=== PATIENT | male | born 1970 | race Caucasian/White ===

== ENCOUNTER 2019-03-05 06:25 | Inpatient (IN) ==
--- NOTE | 2019-02-11 13:24 | PAT Medication Instructions ---
Medication Instructions Date of Service February 11, 2019 Home Medications allopurinol 300 mg tablet 150 mg PO QPM armodafinil 200 mg tablet 200 mg PO QAM aspirin 81 mg tablet,delayed 81 mg PO QPM carvedilol 12.5 mg tablet 12.5 mg PO BID metformin 500 mg tablet 500 mg PO BID multivitamin tablet 1 tab PO QAM nifedipine ER 60 mg 60 mg PO QAM potassium chloride ER 10 mEq 40 meq PO BID ranitidine 150 mg tablet 150 mg PO BID torsemide 20 mg tablet 20 mg PO BID ASK your prescriber and surgeon aspirin 81 mg tablet,delayed 81 mg PO QPM DO NOT take the morning of surgery armodafinil 200 mg tablet 200 mg PO QAM metformin 500 mg tablet 500 mg PO BID multivitamin tablet 1 tab PO QAM potassium chloride ER 10 mEq 40 meq PO BID ranitidine 150 mg tablet 150 mg PO BID torsemide 20 mg tablet 20 mg PO BID Take morning of surgery With a small sip of water, OTHERWISE NOTHING TO EAT OR DRINK AFTER MIDNIGHT: carvedilol 12.5 mg tablet 12.5 mg PO BID nifedipine ER 60 mg 60 mg PO QAM Take evening before surgery allopurinol 300 mg tablet 150 mg PO QPM carvedilol 12.5 mg tablet 12.5 mg PO BID metformin 500 mg tablet 500 mg PO BID potassium chloride ER 10 mEq 40 meq PO BID ranitidine 150 mg tablet 150 mg PO BID torsemide 20 mg tablet 20 mg PO BID Other Notes If you have any questions please call us at [phone] or [phone] or [phone] or [phone]
--- NOTE | 2019-02-12 11:43 | Anesthesiology Consultation ---
Date of Service February 12, 2019 Assessment & Plan (1) Encounter for pre-operative examination: - Check BSG AM DOS - Cardio: 12/20/18: "I see no cardiac contraindication to proceeding on with the planned prostatectomy." - Per patient, okay to continue ASA perioperatively per surgeon* Chart Review Chart Review: Acceptable Risk for Surgery and Patient seen in Pre Admission Testing Teaching & Discussion Pre-Anesthesia Teaching/Discussion Notes: Instructed NPO after midnight before surgery,except medications with 15 cc of water. Medication instructions provided according to the PAT guidelines. History Surgery Operation Date: 03/05/19 07:30 Proposed Procedures p Robotic Assisted Laparoscopic Radical Retropubic Prostatectomy, Possible Open, Possible Pelvic Lymph Node Dissection, Possible Suprapubic Tube Placement - Damon Donovan MD Height/Weight Height: 6 ft 4 in Weight: 181.4 kg Allergies Allergy/AdvReac Type Severity Reaction Status Date / Time No Known Allergies Allergy Verified 02/11/19 10:08 Medications Home Medications Medication Instructions Recorded Confirmed Last Taken allopurinol 300 mg tablet 150 mg PO QPM tab 01/02/19 02/11/19 Unknown armodafinil 200 mg tablet 200 mg PO QAM 01/02/19 02/11/19 Unknown aspirin 81 mg tablet,delayed 81 mg PO QPM 01/02/19 02/11/19 Unknown release carvedilol 12.5 mg tablet 12.5 mg PO BID 01/02/19 02/11/19 Unknown metformin 500 mg tablet 500 mg PO BID 01/02/19 02/11/19 Unknown multivitamin tablet 1 tab PO QAM 01/02/19 02/11/19 Unknown nifedipine ER 60 mg 60 mg PO QAM 01/02/19 02/11/19 Unknown tablet,extended release 24 hr potassium chloride ER 10 mEq 40 meq PO BID tab 01/02/19 02/11/19 Unknown tablet,extended release ranitidine 150 mg tablet 150 mg PO BID tab 01/02/19 02/11/19 Unknown torsemide 20 mg tablet 20 mg PO BID tab 01/02/19 02/11/19 Unknown Past Medical History Medical History Diabetes NIDDM Drowsiness DAYTIME DROWSINESS- ON NUVIGIL High cholesterol Hypertension Morbid obesity Myocardial infarct 2001 Pacemaker 2000, 2008 (REVISION)= [facility]; LAST PACER CHECK 12/20/18* Prostate CA DX 11/2018 Sleep apnea CPAP Past Family History Family History Grandfather (Maternal) , Passed in 70's of suicide Colon cancer, Onset Age: 70 Mother No problems noted. Father Diabetes Brother No problems noted. Brother No problems noted. Sister No problems noted. Daughter No problems noted. Daughter No problems noted. Daughter No problems noted. Daughter No problems noted. Past Surgical History Surgical History History of cardiac cath X2; MOST RECENT 2008= NO STENTS History of prostate biopsy 11/2018 Status post biventricular cardiac pacemaker insertion 2000, 2013 (REVISION) Past Anesthesia History No Hx of Anesthesia Complications and No Family Hx of Anesthesia Complications History of PONV No Motion Sickness Screening History of Motion Sickness: No Social History Smoking Status: Former smoker tobacco type: cigarettes Smoking cigarettes per day: QUIT 15 YEARS, HX < 3 PPD X 20+ YEARS Do You Dip or Chew Tobacco: No Hx Alcohol Use: Yes Alcohol type: other alcohol intake frequency: a few times a week Hx Substance Use: No substance use type: does not use Exercise / Class Metabolic Activity III < 4 Walking/Shop/Light housework Review of Systems Patient denies chest pain, shortness of breath, cough, wheezing, palpitations. Physical Exam Vital Signs VITALS BP 146/84 P 60 TEMP 98.2 SP02 95%RA RESP 20 PHYSICAL Full neck and c-spine range of motion. Full TMJ range of motion. TMD 4 finger breaths Mallampati Score 3 Dentition: missing sides/molars Lungs: clear throughout to auscultation Cardiac: regular rate and rhythm, no murmurs noted Spine: normal Carotid arteries: negative bruit Extremities: no edema Large trimble-- patient advised to trim Large tongue Testing Electrocardiogram Date: 12/20/18 Atrial paced rhythm at 60bpm. Chest X-Ray Date: 02/12/19 Findings: + NAD Mild cardiomegaly. No acute process. Echocardiogram Date: 12/20/18 EF 55%. No RWMA. Mild LVH. Minimal sclerotic changes to atrial/mitral valve. Stress Test Date: 07/09/17 Type: nuclear (LEXISCAN) Normal myocardial perfusion stress images with no evidence for pharmacologically induced ischemia. Post stress 52%. Other Testing Pacer check: 12/20/18: [facility]. Mode DDDR. Mode switch < 1%. AP 53%. ACCESS CONTROL SPECIALIST <1%. Laboratory Results 02/12/19 11:51 02/12/19 11:51 Blood Type O Positive 02/12/19 11:51 Antibody Screen NEGATIVE 02/12/19 11:51 Urine Color Yellow 02/12/19 Unknown Urine Appearance Clear (Clear) 02/12/19 Unknown Urine pH 5.5 (4.5-7.5) 02/12/19 Unknown Ur Specific [place] 1.012 (1.000-1.030) 02/12/19 Unknown Urine Protein Negative (Negative) 02/12/19 Unknown Urine Glucose (UA) Negative (Negative) 02/12/19 Unknown Urine Ketones Negative (Negative) 02/12/19 Unknown Urine Nitrite Negative (Negative) 02/12/19 Unknown Ur Leukocyte Esterase Negative (Negative) 02/12/19 Unknown
--- NOTE | 2019-02-12 12:27 | XRay Report ---
XR chest Pre-admission PA/Lat CLINICAL HISTORY: pat preoperative evaluation COMPARISON STUDY: No previous studies for comparison. FINDINGS: Evidence for bipolar cardiac pacemaker. Mild cardiomegaly. Lungs are clear. IMPRESSION: Mild cardiomegaly. No acute process. The above report was generated using voice recognition software. It may contain grammatical, syntax or spelling errors. Electronically signed by: Shahriar Mishra M.D. 02/12/2019 12:26 PM
[2019-02-12 12:29] LABS: Appearance Urine Clear (Clear); Bilirubin Urine Negative (Negative); Blood Urine Negative (Negative); Color Urine Yellow; Glucose Urine UA Negative (Negative); Ketones Urine Negative (Negative); Leukocyte Esterase Urine Negative (Negative); Nitrite Urine Negative (Negative); Protein Urine Negative (Negative); Specific Gravity Urine 1.012 (1.000-1.030); Urobilinogen Urine Negative (Negative); pH Urine 5.5 (4.5-7.5)
[2019-02-12 12:29] LABS: Basophils # (auto) 0.01 K/uL (0-0.2); Basophils % (auto) 0.1 %; Eosinophils # (auto) 0.13 K/uL (0-0.5); Eosinophils % (auto) 1.7 %; Hemoglobin 14.9 g/dL (14.0-18.0); Immature Granulocytes # (auto) 0.01 K/uL (0.00-0.02); Immature Granulocytes % (auto) 0.1 %; Lymphocytes # (auto) 2.61 K/uL (1.2-3.4); Lymphocytes % (auto) 34.7 %; Mean Corpuscular Hgb Conc 33.9 g/dL (32-36); Mean Corpuscular Volume 90.5 fL (80-100); Mean Platelet Volume 11.1 fL (7.4-10.4); Monocytes # (auto) 0.47 K/uL (0.11-0.59); Monocytes % (auto) 6.2 %; Neutrophils % (auto) 57.2 %; Platelet Count 215 K/uL (130-400); RDW Coefficient of Variation 13.6 % (11.5-14.5); RDW Standard Deviation 44.6 fL (36.4-46.3); Red Blood Count 4.86 M/uL (4.7-6.1); White Blood Count 7.53 K/uL (4.8-10.8)
[2019-02-12 12:39] LABS: BUN Creatinine Ratio 13.6 (10-20); Calcium 8.9 mg/dl (8.5-10.1); Creatinine Clr Calc Pharmacy 196.9 ml/min; Est GFR (African American) 121.6; Est GFR (Non-African American) 104.9; Potassium 3.8 mmol/L (3.5-5.1)
[~2019-03-05 06:25] MED LIST: CEFAZOLIN 3000MG 65 ML IV SCH; HEPARIN SOD 5,000 UNIT/0.5 ML VIAL SC SCH; HEPARIN SQ 5000 UNIT HEART ALERT CARP SQ SCH; LR 15ML/HR IV SCH
--- OUTSIDE RECORDS SUMMARY | 2019-03-05 06:28 | External Medical Summary | Continuity of Care Document ---
:1970 Author Name Anthony Mcmahan Address Unavailable Unavailable , Care Team Providers Name Role Phone Zion Mcmahan Unavailable [email or web address] Unavailable Unavailable Unavailable Unavailable Unavailable Problems Neoplasm of prostate, malignant (185) (C61) Elevated PSA (790.93) (R97.20) Pacemaker (V45.01) (Z95.0) Heart trouble (429.9) (I51.9) High cholesterol (272.0) (E78.00) High blood pressure (401.9) (I10) Diabetes (250.00) (E11.9) Renal mass (593.9) (N28.89) Allergies and Adverse Reactions No Known Drug Allergies (Allergy) Medications Coreg 12.5 MG Oral Tablet Refills: 0 Potassium TABS Refills: 0 metFORMIN HCl - 500 MG Oral Tablet Refills: 0 Nuvigil 150 MG Oral Tablet Refills: 0 Aspirin 81 MG TABS Refills: 0 Zantac 150 MG TABS Refills: 0 Multiple Vitamin TABS Refills: 0 Procedures BUN/Creatinine Ratio w BUN+Creat Date: 03-Jan-2019 BUN/Creatinine Ratio w BUN+Creat Date: 03-Jan-2019 History of pacemaker insertion Status: C ompleted Immunizations Immunizations not documented Family History Father Family history of diabetes mellitus (V18.0) (Z83.3) Status: Active Mother Family history of hypertension (V17.49) (Z82.49) Status: Act noemi Grandfather Family history of malignant neoplasm of prostate (V16. 42) (Z80.42) Status: Active Social History - Smoking Status Former smoker Plan of Treatment Planned Encounters Appointment; Derick Donovan M.D. Start: 21-Mar-2019 9:45 Request Planned Observations Planned Goals not documented Results X-Ray Chest Preadm Testing Laboratory: [facility] [address] [facility] [place] 12-Feb-2019 12:24 X-Ray Chest Preadm Testing (CXRPRE) [facility], [place] [phone] XRay Report Patient: LORI GARLAND Admit Date: MR#: [id number] Address1[address] Acct ID:[id number] Address2: Date: 1970 [facility] Zip: [place] [address] Age: 48 Location: [facility] Sex: M Room/Bed: Att Phy: Derick Donovan MD Diagnos is: Prostate Cancer Alea Phy: Laz Owen Service Date: 02/12/19 Fam Phy: Interpreting Phy: Shahriar Mishra MD Admit Phy: Ordering Phy: Derick Donovan MD cc: XR chest Pre-admission PA/Lat CLINICAL HISTORY: pat preoperative evaluation COMPARISON STUDY: No previous studies for comparison. FINDINGS: Evidence for bipolar cardiac pacemaker. Mild cardiomegaly. Lungs are clear. IMPRESSION: Mild cardiomegaly. No acute process. The above report was generated using voice recognition software. It may contain grammatical, syntax or spelling errors. Electronically signed by: Shahriar Mishra M.D. 02/12/2019 12:26 PM Dictated: 02/12/19 1224 Transcribed: 02/12/19 1224 CBC With DIFF Laboratory: [facility] Laboratory [address] [place] [address] tel: 12-Feb-2019 11:51 WBC 7.53 K/uL Range: 4.8-10.8 K/u L RBC 4.86 {M/uL} Range: 4.7-6.1 M/uL HEMOGLOBIN 14.9 g/dL Range: 14.0-18.0 g /dL HEMATOCRIT 44.0 % Range: 42-52 % MCV 90.5 fL Range: 80-100 fL MCH 30.7 pg Range: 25-34 pg MEAN CORPUSCULAR HGB CONC Range: 32-36 g/dL 33.9 g/dL RED CELL DISTRIBUTION WIDTH Range: 36.4 -46.3 fL SD 44.6 fL RED CELL DISTRIBUTION WIDTH Range: 11.5 -14.5 % CV 13.6 % PLATELET COUNT 215 K/uL Range: 130-400 K/uL MEAN PLATELET VOLUME 11.1 fL Range: 7.4 -10.4 fL (above high threshold) NEUT % 57.2 % Range: % LYMPH % 34.7 % Range: % MONO % 6.2 % Range: % EOS % 1.7 % Range: % BASO % 0.1 % Range: % IG% 0.1 % Range: % Comments: IG paramet er reflects the combination of Metas, Myelos andPromyelocytes. Neutrophils (Auto) 4.30 K/uL Range: 1. 4-6.5 K/uL LYMPH ABS # 2.61 K/uL Range: 1.2-3.4 K/ uL MONO ABS # 0.47 K/uL Range: 0.11-0.59 K /uL EOS ABS # 0.13 K/uL Range: 0-0.5 K/uL BASO ABS # 0.01 K/uL Range: 0-0.2 K/uL IG# 0.01 K/uL Range: 0.00-0.02 K/ uL Urine rflx Microscopic Laboratory: [facility] Laboratory Comments : [address] [facility] [address] tel: 12-Feb-2019 0:00 Urine Color Yellow Urine Appearance Clear Range: Clear Urine Specific [place] 1.012 Range: 1.0 00-1.030 Urine Ph 5.5 Range: 4.5-7.5 Urine Protein(Dipstick) Range: Negative Negative Urine Glucose(Dipstick) Range: Negative Negative Urine Ketones Negative Range: Negative Urine Bilirubin Negative Range: Negativ e URINE BLOOD HGB Negative Range: Negativ e Urobilinogen Negative Range: Negative Nitrite Urine Negative Range: Negative Urine Leukocyte Esterase Range: Negativ e Negative Basic Metabolic Panel Laboratory: [facility] Laboratory [address] [facility] [address] tel: 12-Feb-2019 11:51 SODIUM 143 mmol/L Range: 136-145 mmol /L POTASSIUM 3.8 mmol/L Range: 3.5-5.1 mmo l/L CHLORIDE 109 mmol/L (above Range: 98-10 7 mmol/L high threshold) CARBON DIOXIDE 30 mmol/L Range: 21-32 m mol/L ANION GAP 4.0 Range: 3-11 BLOOD UREA NITROGEN 11 mg/dl Range: 7-1 8 mg/dl CREATININE 0.80 mg/dl Range: 0.6-1.4 mg /dl Estimated Creatinine Range: ml/min Clearance 196.9 ml/min Comments: Est. Cr eatinine Clearance (Mod Cockcroft- Gault) for pharmacydosing purposes. Estimated GFR ( Comments: Units: ml/min per Iranian) 121.6 1.73 meters squaredT he estimated GFR (CKD-E PI equation) has not be en validatedfor inpatie nt settings and may not be an accurate reflectiono f renal function in critical ly ill patients or those wi thrapidly changing renal funct ion (e.g. PHYLICIA). Estimated GFR (Non- Comments: Uni ts: ml/min per Iranian) 104.9 1.73 meters squaredT he estimated GFR (CKD-E PI equation) has not be en validatedfor inpatie nt settings and may not be an accurate reflectiono f renal function in critical ly ill patients or those wi thrapidly changing renal funct ion (e.g. PHYLICIA). BUN/CREATININE RATIO 13.6 Range: 10-20 GLUCOSE 96 mg/dl Range: 70-99 mg/dl CALCIUM 8.9 mg/dl Range: 8.5-10.1 mg/ dl Urine Culture 12-Feb-2019 0:00 URINE CULTURE CATH ORDERED PROCEDURE : Urine Culture; Speciment : Urine,Clean Catch Urine Culture : No growth - less than 1,000 colonies/mL. Vital Signs 12-Feb-2019 13:12 Systolic 158 mm[Hg] Diastolic 98 mm[Hg] Heart Rate 67 /min Encounters Appointment; Derick Donovan M.D. 12-Feb-2019 13:10 Encounter Diagnosis: Problem not documented Appointment; Derick Donovan M.D. 21-Jan-2019 8:25 Encounter Diagnosis: Problem not documented Appointment; Derick Donovan M.D. 06-Dec-2018 11:20 Encounter Diagnosis: Problem not documented Appointment; Derick Donovan M.D. 23-Nov-2018 13:15 Encounter Diagnosis: Problem not documented Appointment; Urology, US probe only 23-Nov-2018 13:15 Encounter Diagnosis: Problem not documented Appointment; Urology, Room 8 23-Nov-2018 13:00 Encounter Diagnosis: Problem not documented Appointment; Derick Donovan M.D. 29-Oct-2018 14:00 Encounter Diagnosis: Problem not documented Appointment; Derick Donovan M.D. 21-Mar-2019 9:45 Encounter Diagnosis: Problem not documented
[2019-03-05] MEDS ORDERED: BUPIVACAINE 0.5 % 5 MG/1 ML MPF 30ML VIAL ONE (06:59)
--- NOTE | 2019-03-05 06:59 | History & Physical Bridge Note ---
Date of Service March 05, 2019 History & Physical Bridge Note I have examined the patient, reviewed the History & Physical and in the interval since the performance of the History & Physical I have noted the following changes of clinical significance: no changes noted
[2019-03-05] MEDS ORDERED: fentaNYL citrate 100 MCG/2 ML VIAL ONE ×2 (07:06→08:22)
[2019-03-05] MEDS ORDERED: MIDAZOLAM HCL 1 MG/ML 2ML VIAL ONE (07:06)
[2019-03-05] MEDS ORDERED: ATROPINE SULFATE 0.1 MG/ML 10ML SYR IV PRN (07:20)
[2019-03-05] MEDS ORDERED: fentaNYL citrate 100 MCG/2 ML VIAL IV PRN (07:20)
[2019-03-05] MEDS ORDERED: PHENYLEPHRINE 100MCG/ML 5ML SYR IV PRN (07:20)
[2019-03-05] MEDS ORDERED: HYDROmorphone INJ 1 MG/ML SYRINGE IV PRN (07:20)
[2019-03-05] MEDS ORDERED: ONDANSETRON INJ 2 MG/ML 2 ML VIAL IV PRN ×2 (07:20→14:09)
[2019-03-05] MEDS ORDERED: ePHEDrine sulfate 50 MG/ML AMP IV PRN (07:20)
[2019-03-05] MEDS ORDERED: PROMETHAZINE HCL 12.5 MG in SODIUM CHLORIDE 0.9% 50 ML IV PRN (07:20)
[2019-03-05] MEDS ORDERED: DEXAMETHASONE SOD INJ 4 MG/ML VIAL ONE (07:24)
[2019-03-05] MEDS ORDERED: PHENYLEPHRINE 100MCG/ML 5ML SYR ONE (07:24)
[2019-03-05] MEDS ORDERED: ePHEDrine sulfate 50 MG/ML SYR ONE (07:24)
[2019-03-05] MEDS ORDERED: NEOSTIGMINE METHYLSULFATE 5 MG/5 ML SYR ONE (07:24)
[2019-03-05] MEDS ORDERED: PROPOFOL IV EMULSION 10 MG/ML 20 ML VIAL IV ONE ×2 (07:24→08:31)
[2019-03-05] MEDS ORDERED: ROCURONIUM BROMIDE 10 MG/ML 5 ML VIAL ONE (07:24)
[2019-03-05] MEDS ORDERED: LIDOCAINE HCL 2% 2 ML VIAL/AMP(20MG/ML) INFIL ONE (07:24)
[2019-03-05] MEDS ORDERED: LARYING-O-JET KIT (LTA) ONE (07:24)
[2019-03-05] MEDS ORDERED: GLYCOPYRROLATE 0.2 MG/ML VIAL ONE (07:24)
[2019-03-05] MEDS ORDERED: ONDANSETRON INJ 2 MG/ML 2 ML VIAL ONE (07:24)
[2019-03-05] MEDS ORDERED: BELLADONNA/OPIUM SUPP 60 MG SUPP PR ONE (08:21)
[2019-03-05] MEDS ORDERED: HYDROmorphone INJ 2 MG/ML SYR/VIAL ONE (08:22)
--- NOTE | 2019-03-05 12:47 | Operative Report ---
Post Operative Report Pre & Post Diagnosis Operation Date: 03/05/19 07:55 Pre-Op Diagnosis: Prostate Cancer Post-Op Diagnosis: Prostate Cancer Procedure Operation Date: 03/05/19 07:55 Actual Procedures p Robotic Assisted Laparoscopic Radical Retropubic Prostatectomy, Pelvic Lymph Node Dissection(Not Applicable) - Damon Donovan MD Surgeon Derick Donovan MD Guillotine Operator Herminia Verdugo Estimated Blood Loss 150 Findings Consistent with Post-Op Diagnosis Specimens 1. Periprostatic fat 2. R pelvic lymph nodes 3. L pelvic lymph nodes 4. Prostate and Seminal vesicles Description of Procedure The patient was identified in the preoperative holding area, appropriate informed consents were reviewed and completed, and he was transported to the operating suite. Subcutaneous heparin was administered in the pre-operative holding area. Upon arrival in the operating suite, he received appropriate antibiotics and general anesthesia. He was positioned in dorsal lithotomy, a B&O suppository was inserted after digital rectal exam, and he was prepped and draped in standard fashion. A Navarro catheter was inserted in the sterile field. A Veress needle was passed per umbilicus but I did not feel it could adequately reach the peritoneum - instead, I entered the abdomen with a 12mm visiport in the supraumbilical region. He was placed in steep Trendelenburg position. Inspection of the abdomen was carried out, and there was no evidence of traumatic entry or injury secondary to the Veress needle. After confirming a clear anterior abdominal wall, ports were subsequently placed in standard robotic prostatectomy fashion without incident. Of note, give his body habitus, I elected to use extralong ports in all locations. To begin the robotic portion of the case, the left lateral aspect of the sigmoid was mobilized off of the left pelvic side wall to allow the pouch of Butch to be appropriately visualized. While I could visualize the pouch, logistics of moving and reaching around his pelvis were challenging and I elected to avoid a posterior dissection. The medial umbilical ligaments were then controlled with bipolar electrocautery just inferior to the umbilicus. Following cauterization, they were divided utilizing monopolar cautery. A peritoneal incision was carried from this location to the medial aspect of the internal inguinal rings bilaterally with care to avoid opening through the ring. This incision was concluded when the vas deferens was reached. Dissection of the bladder and prostate off of the posterior aspect of the pubic arch was completed allowing full visualization of the prostate. The fat overlying the prostate was removed en bloc and passed off the table as a specimen labeled "periprostatic fat". The endopelvic fascia was cleared during this portion of the procedure, and subsequently opened - first on the right and then the left. The incision through the endopelvic fascia began near the prostate-bladder junction and was carried to the apex with extreme care to preserve all lateral levator musculature as well as the periurethral musculature and sphincter complex. The puboprostatic ligaments were thinned slightly bilaterally before placing a 0-Vicryl figure of 8 stitch around the DVC. The lymph node dissection was then conducted. External iliac vessels were identified on the pelvic side wall. The packet of fat and lymphatic tissue that resides just under the iliac vein was elevated and off of the vein with a split and roll technique. The packet was dissected laterally to the circumflex vein and distally to the obturator nerve which was preserved. The proximal aspect of the packet was carried towards the bifurcation of the iliac vessels. A combination of monopolar and bipolar cautery were used to assist with control. Clips were placed at the proximal and distal aspects of the packet prior to transection. After completing the dissection on both sides, the packets were collected and passed off of the table as specimens labeled "pelvic lymph nodes". My attention then returned to the prostate, with identification of the bladder neck aided by gentle traction on the Navarro catheter and lateral to medial pressure at the presumed level of the bladder neck with the robotic instruments. An anterior cystotomy was made, the Navarro balloon deflated and the catheter guided through the incision to allow anterior retraction. I attempted to preserve maximal bladder neck musculature as I circumferentially dissected around the bladder neck. After incision through the posterior aspect of the mucosa, the dissection was carried through detrusor muscle until the bilateral ampullae of the vasa were identified. Each vas was dissected for a length of 4cm before being transected. I then dissected the SV's bilaterally. I attempted to perform a posterior dissection - but mobility, reach, and angle all made this dissection extremely challenging. An incision in the lateral prostatic fascia was then made bilaterally to facilitate control of the vascular pedicles. The pedicles were each controlled with a series of Weck clips. The neurovascular bundles were identified with a conservative approach on the right, and slight more aggressive dissection on the left. As I progressed through the pedicles, I was able to expand and complete my posterior dissection. The apical attachments of the prostate were remaining at that stage. The DVC was divided with bipolar electrocautery. Ginger-prostatic tissue incised with sharp dissection and monopolar cautery. Maximal urethral length was preserved before dividing the urethra sharply. I had a small amount of oozing from the left neurovascular bundle near the apex of the prostate. I oversewed the venous bleeding with a 3-0 vicryl in figure of 8 fashion. The prostate was entirely freed at that point, and collected in an EndoCatch bag before being moved out of the field of vision. Hemostasis was confirmed and anastomosis of the bladder and urethra was completed utilizing a double armed V- Lock stitch. A new Navarro catheter was inserted and the anastomosis tested with irrigation. There was no evidence of leak. FloSeal coagulant was placed around the anastomosis. The robot was undocked, the specimen extracted through expansion of the ginger- umbilical camera port. The fascia was closed with a running 0-PDS stitch. The right event sales assistant port was closed in two layers - with a figure of 8 0-Vicryl to reapproximate the fascia followed by 4-0 Monocryl to close the skin. Monocryl was used to close all other skin incisions. All wounds were dressed with Dermabond. The case was concluded and the patient taken to the PACU in stable condition. Herminia Verdugo assisted throughout the case from incision to closure. I attest to the content of the Intraoperative Record and any orders documented therein. Any exceptions are noted below.
[2019-03-05 12:54] LABS: Basophils # (auto) 0.01 K/uL (0-0.2); Basophils % (auto) 0.1 %; Eosinophils # (auto) 0.02 K/uL (0-0.5); Eosinophils % (auto) 0.2 %; Hematocrit (blood only) 41.4 % (42-52); Hemoglobin 14.2 g/dL (14.0-18.0); Immature Granulocytes # (auto) 0.02 K/uL (0.00-0.02); Immature Granulocytes % (auto) 0.2 %; Lymphocytes # (auto) 1.79 K/uL (1.2-3.4); Lymphocytes % (auto) 18.5 %; Mean Corpuscular Volume 90.4 fL (80-100); Mean Platelet Volume 10.9 fL (7.4-10.4); Monocytes # (auto) 0.18 K/uL (0.11-0.59); Monocytes % (auto) 1.9 %; Neutrophils # (auto) 7.63 K/uL (1.4-6.5); Neutrophils % (auto) 79.1 %; Platelet Count 221 K/uL (130-400); RDW Coefficient of Variation 13.5 % (11.5-14.5); RDW Standard Deviation 44.7 fL (36.4-46.3); Red Blood Count 4.58 M/uL (4.7-6.1); White Blood Count 9.65 K/uL (4.8-10.8)
[2019-03-05 12:59] LABS: Mean Corpuscular Hgb Conc 34.3 g/dL (32-36)
[2019-03-05 13:10] LABS: BUN Creatinine Ratio 12.5 (10-20); Calcium 8.3 mg/dl (8.5-10.1); Creatinine Clr Calc Pharmacy 104.5 ml/min; Est GFR (Non-African American) 54.3; Potassium 3.6 mmol/L (3.5-5.1)
--- NOTE | 2019-03-05 13:24 | Anesthesiology Progress Note ---
Date of Service March 05, 2019 Anesthesia Post Procedure Vital Signs Vital Signs: Temp Pulse Pulse Resp BP Pulse Ox 03/05/19 13:05 36.4 C L 60 15 135/75 95 03/05/19 12:55 60 15 129/70 98 03/05/19 12:45 60 14 124/71 97 03/05/19 12:37 36.0 C L 60 13 134/72 96 03/05/19 07:00 36.5 C 63 20 171/89 H 96 Transfer of Care Handoff Completed per policy Notes Mental Status: alert / awake / arousable Patient Amnestic to Procedure: Yes Nausea / Vomiting: adequately controlled Pain: adequately controlled Airway Patency, RR, SpO2: stable & adequate BP & HR: stable & adequate Hydration State: stable & adequate Anesthetic Complications: no major complications apparent Notes: Awake, doing well. Requiring 2L O2 via NC to maintain O2 sat. VSS
[2019-03-05] MEDS ORDERED: MoRPHine SULFATE 4 MG/ML 1 ML CARP\\VIAL IV PRN (14:09)
[2019-03-05] MEDS ORDERED: OXYCODONE HCL IR 5 MG TAB (IMMEDIATE RELEASE) PO PRN (14:09)
[2019-03-05] MEDS ORDERED: PHARMACY GLYCEMIC MGMT CONSULT PRN (14:31)
[2019-03-05] MEDS ORDERED: INSULIN GLARGINE SOLOSTAR 100 UNITS/ML 3 ML PEN SC ONE ×2 (14:45→21:00)
--- NOTE | 2019-03-05 15:36 | Pharmacy Report ---
Glycemic Control Consultation - Date of Service March 05, 2019 - Scope Scope: Glycemic Pharmacist consulted for glycemic control and to write orders per [facility] inpatient glycemic control protocol - Objective Weight: 177.9 kg Accuchecks BSG (last 24hrs): 03/05/19 03/05/19 03/05/19 06:56 12:40 12:45 Glucose 143 H POC Glucose 125 H 125 H 03/05/19 15:16 Glucose POC Glucose 147 H Laboratory Data (last 24hrs): 03/05/19 12:45 Potassium 3.6 Carbon Dioxide 34 H Anion Gap 3.0 Creatinine 1.49 H Est Cr Clr Drug Dosing 104.5 - Recent Pertinent Medications Outpatient Anti-diabetic Regimen: * Metformin 500 mg po BID * A1c on order for tomorrow AM Risk Factors for Insulin Resistance: * Steroids: dexamethasone 4 mg IV (overriden in OR) * Infection: Cefazolin preop * Recent Surgery: POD 0 s/p prostatectomy * Diet: Clear liquid - Assessment & Plan Assessment & Plan: ASSESSMENT: * 48 yo M with T2DM and unknown HbA1c on metformin monotherapy for diabetes admitted on 03/05 for prostatectomy * BSG's thus far good - 125 mg/dL x2 (obtained pre and post-op). However, anticipate insulin resistance from dexamethasone and surgery and post-op BSG control will be important for adequate wound healing and prevention of infection * Will therefore start Lantus at 0.2 units/kg and initiate Novolog at close to weight-based moderate stress estimate * HbA1c on order for tomorrow PLAN FOR INPATIENT GLYCEMIC CONTROL: * Holding outpatient oral diabetes medications * Basal insulin: Lantus 35 units SQ x1 now. Additional Lantus HS x1 tonight based on BSG * 0 units for BSG less than 140 mg/dL * 10 units for BSG 140-180 mg/dL * 20 units for BSG greater than 180 mg/dL * Bolus insulin * NovoLog per scale ACHS or Q6hrs while NPO * Goal Range: Low 110 mg/dL - High 140 mg/dL * Correction Factor: 15 mg/dL/unit * Nutritional / Prandial insulin per carb ratio of 1 unit per 5 grams CHO consumed * Please note that the plan above was derived based on current level of insulin resistance and hospital stress. These recommendations are appropriate for inpatient admission only. Plan of care upon discharge will need to be reassessed to avoid potential outpatient hypo/hyperglycemia. Thank you.
[2019-03-05] MEDS: OXYCODONE HCL IR 5 MG TAB (IMMEDIATE RELEASE) PO PRN (16:35)
[2019-03-05 17:37] LABS: Hemoglobin 15.1 g/dL (14.0-18.0); Mean Corpuscular Hgb Conc 35.1 g/dL (32-36); Mean Corpuscular Volume 90.1 fL (80-100); Platelet Count 255 K/uL (130-400); RDW Coefficient of Variation 13.6 % (11.5-14.5); Red Blood Count 4.77 M/uL (4.7-6.1); White Blood Count 13.93 K/uL (4.8-10.8)
[2019-03-05] MEDS: INSULIN ASPART 100 UNITS/ML 3 ML PEN SC SCH ×2 (18:29→21:57)
[2019-03-05] MEDS: FAMOTIDINE 20 MG in SYRINGE 3 ML IV SCH (18:35)
[2019-03-05] MEDS: TORSEMIDE 20 MG TAB PO SCH (18:35)
[2019-03-05] MEDS: CEFAZOLIN 2000MG 2,000 MG/15 ML SYR IV SCH (18:59)
[2019-03-05] MEDS: LACTATED RINGER'S 1,000 ML IV SCH (19:00)
[2019-03-05 19:53] LABS: INR 1.1 (0.9-1.1); Prothrombin Time 10.9 Seconds (9.0-12.0)
[2019-03-05] MEDS: CARVEDILOL 12.5 MG TAB PO SCH (20:05)
[2019-03-05] MEDS: DOCUSATE SODIUM 100 MG CAP PO SCH (20:05)
[2019-03-05] MEDS: POTASSIUM CHLORIDE 20 MEQ TABCR PO SCH (20:05)
[2019-03-05] MEDS: ALLOPURINOL 300 MG TAB PO SCH (20:07)
[2019-03-05] MEDS: HEPARIN SOD 5,000 UNIT/0.5 ML VIAL SQ SCH (22:59)
[2019-03-06] MEDS: CEFAZOLIN 2000MG 2,000 MG/15 ML SYR IV SCH ×2 (01:40→10:31)
[2019-03-06] MEDS ORDERED: INSULIN ASPART 100 UNITS/ML 3 ML PEN SC ONE (02:00)
[2019-03-06] MEDS: LACTATED RINGER'S 1,000 ML IV SCH ×3 (03:00→18:29)
[2019-03-06] MEDS: FAMOTIDINE 20 MG in SYRINGE 3 ML IV SCH ×2 (05:59→18:11)
[2019-03-06 07:43] LABS: Eosinophils # (auto) 0.06 K/uL (0-0.5); Eosinophils % (auto) 0.6 %; Hemoglobin 12.7 g/dL (14.0-18.0); Immature Granulocytes # (auto) 0.03 K/uL (0.00-0.02); Immature Granulocytes % (auto) 0.3 %; Lymphocytes # (auto) 2.83 K/uL (1.2-3.4); Lymphocytes % (auto) 28.5 %; Mean Corpuscular Hgb Conc 33.4 g/dL (32-36); Mean Corpuscular Volume 90.9 fL (80-100); Mean Platelet Volume 10.9 fL (7.4-10.4); Monocytes # (auto) 0.83 K/uL (0.11-0.59); Monocytes % (auto) 8.4 %; Neutrophils # (auto) 6.18 K/uL (1.4-6.5); Neutrophils % (auto) 62.2 %; Platelet Count 212 K/uL (130-400); RDW Coefficient of Variation 13.9 % (11.5-14.5); RDW Standard Deviation 45.6 fL (36.4-46.3); Red Blood Count 4.18 M/uL (4.7-6.1); White Blood Count 9.93 K/uL (4.8-10.8)
[2019-03-06] MEDS: OXYCODONE HCL IR 5 MG TAB (IMMEDIATE RELEASE) PO PRN ×3 (07:52→20:01)
--- NOTE | 2019-03-06 07:52 | Urology Progress Note ---
Date of Service March 06, 2019 Assessment & Plan (1) Prostate cancer: POD #1 s/p RALP w/ LND - progressing appropriately - needs to ambulate this AM - advance diet - labs stable - likely keep him in house today with d/c home tomorrow Subjective did well overnight moderate abdominal pain OOB to chair with some ambulation no nausea, vomiting Physical Exam Physical Exam: incisions appropriate urine clear Results & Data Vital Signs (Past 12 Hours) Vital Signs Temp Pulse Pulse Resp BP Pulse Ox 03/06/19 07:25 36.8 C 62 18 158/86 H 92 03/06/19 03:11 36.5 C 60 16 138/78 95 03/05/19 22:59 36.8 C 60 16 125/71 95 03/05/19 19:52 80 16 170/77 H 92
[2019-03-06] MEDS: NIFEdipine EXTENDED REL 30 MG TABCR PO SCH (07:53)
[2019-03-06] MEDS: POTASSIUM CHLORIDE 20 MEQ TABCR PO SCH ×2 (07:53→19:46)
[2019-03-06] MEDS: MULTIVITAMIN TAB PO SCH (07:53)
[2019-03-06] MEDS: CARVEDILOL 12.5 MG TAB PO SCH ×2 (07:53→19:46)
[2019-03-06] MEDS: TORSEMIDE 20 MG TAB PO SCH ×2 (07:53→18:05)
[2019-03-06] MEDS: DOCUSATE SODIUM 100 MG CAP PO SCH ×2 (07:56→19:46)
[2019-03-06 08:15] LABS: BUN Creatinine Ratio 17.5 (10-20); Calcium 7.9 mg/dl (8.5-10.1); Creatinine Clr Calc Pharmacy 146.9 ml/min; Potassium 3.3 mmol/L (3.5-5.1)
--- NOTE | 2019-03-06 08:16 | Anesthesiology Progress Note ---
Date of Service March 06, 2019 Anesthesia Post Procedure Vital Signs Vital Signs: Temp Pulse Pulse Resp BP BP Pulse Ox 03/06/19 07:25 36.8 C 62 18 158/86 H 92 03/06/19 03:11 36.5 C 60 16 138/78 95 03/05/19 22:59 36.8 C 60 16 125/71 95 03/05/19 19:52 80 16 170/77 H 92 03/05/19 18:38 36.5 C 77 19 157/84 H 93 03/05/19 16:32 36.6 C 82 18 163/66 H 95 03/05/19 15:30 36.7 C 65 19 158/81 H 95 03/05/19 14:02 20 171/94 H 94 03/05/19 13:30 36.4 C L 60 16 151/81 H 95 03/05/19 13:05 36.4 C L 60 15 135/75 95 03/05/19 12:55 60 15 129/70 98 03/05/19 12:45 60 14 124/71 97 03/05/19 12:37 36.0 C L 60 13 134/72 96 Pain Intensity Abdomen: Pain Intensity: 8 Notes Mental Status: alert / awake / arousable and participated in evaluation Patient Amnestic to Procedure: Yes Nausea / Vomiting: adequately controlled Pain: adequately controlled and improving with treatment Airway Patency, RR, SpO2: stable & adequate BP & HR: stable & adequate Hydration State: stable & adequate Anesthetic Complications: no major complications apparent
[2019-03-06] MEDS: HEPARIN SOD 5,000 UNIT/0.5 ML VIAL SQ SCH ×2 (09:40→22:42)
[2019-03-06] MEDS: INSULIN ASPART 100 UNITS/ML 3 ML PEN SC SCH ×4 (09:41→21:20)
[2019-03-06 09:49] LABS: Estimated Average Glucose 134 mg/dl; Hemoglobin A1C 6.3 % (4.5-5.6)
--- NOTE | 2019-03-06 14:44 | Pharmacy Report ---
Pharmacy Glycemic Short Note 2 - Date of Service March 06, 2019 - Glycemic Short BSG Results (Last 24 hours): 03/05/19 03/05/19 03/05/19 15:16 16:53 20:31 Glucose POC Glucose 147 H 131 H 124 H 03/06/19 03/06/19 03/06/19 01:46 07:26 08:37 Glucose 102 H POC Glucose 88 116 H 03/06/19 12:19 Glucose POC Glucose 85 Outpatient Anti-diabetic Regimen: * Metformin 500 mg po BID * A1c 6.3% on 03/06/19 Risk Factors for Insulin Resistance: * Steroids: dexamethasone 4 mg IV (overriden in OR on 03/05) * Infection: Cefazolin preop and postop x24 hours * Recent Surgery: POD 1 s/p prostatectomy * Diet: T2DM ASSESSMENT: * 48 yo M with T2DM with good outpatient control on metformin monotherapy admitted on 03/05 for prostatectomy * BSG's have ranged 85-131 mg/dL since surgery yesterday. Goal post-op is ~90- 140 mg/dL. Two BSG's noted below 90 mg/dL * One BSG of 88 mg/dL occurred overnight - will reduce Lantus dose to prevent BSG's below 70 mg/dL. No additional Lantus unless BSG >140 mg/dL tonight * One BSG of 85 mg/dL occured at lunch today, which was a trend down from AM fasting of 116 mg/dL - will loosen CHO ratio PLAN FOR INPATIENT GLYCEMIC CONTROL: * Hold outpatient oral diabetes medications for now - consider resuming tomorrow * Basal insulin: Lantus 15 units SC HS (hold for BSG < 140 mg/dL) * Bolus insulin * NovoLog per scale ACHS or Q6hrs while NPO * Goal Range: Low 110 mg/dL - High 140 mg/dL * Correction Factor: 20 mg/dL/unit * Nutritional / Prandial insulin per carb ratio of 1 unit per 6 grams CHO consumed PLAN FOR DISCHARGE: * Resume outpatient metformin 500 mg po BID, assuming renal function not an issue
[2019-03-06] MEDS: ALLOPURINOL 300 MG TAB PO SCH (19:46)
[2019-03-06] MEDS: ACETAMINOPHEN 1,000 MG/100 ML VIAL IV PRN (20:02)
[2019-03-06] MEDS ORDERED: INSULIN GLARGINE SOLOSTAR 100 UNITS/ML 3 ML PEN SC ONE (21:00)
[2019-03-07] MEDS: LACTATED RINGER'S 1,000 ML IV SCH ×2 (02:26→09:22)
[2019-03-07] MEDS: FAMOTIDINE 20 MG in SYRINGE 3 ML IV SCH (06:22)
[2019-03-07 06:32] LABS: Eosinophils # (auto) 0.08 K/uL (0-0.5); Eosinophils % (auto) 0.9 %; Hematocrit (blood only) 37.7 % (42-52); Hemoglobin 12.4 g/dL (14.0-18.0); Immature Granulocytes # (auto) 0.03 K/uL (0.00-0.02); Immature Granulocytes % (auto) 0.3 %; Lymphocytes # (auto) 2.19 K/uL (1.2-3.4); Lymphocytes % (auto) 23.5 %; Mean Corpuscular Hgb Conc 32.9 g/dL (32-36); Mean Corpuscular Volume 92.2 fL (80-100); Mean Platelet Volume 11.1 fL (7.4-10.4); Monocytes # (auto) 0.91 K/uL (0.11-0.59); Monocytes % (auto) 9.8 %; Neutrophils # (auto) 6.11 K/uL (1.4-6.5); Neutrophils % (auto) 65.5 %; Platelet Count 182 K/uL (130-400); RDW Coefficient of Variation 14.1 % (11.5-14.5); RDW Standard Deviation 47.6 fL (36.4-46.3); Red Blood Count 4.09 M/uL (4.7-6.1); White Blood Count 9.32 K/uL (4.8-10.8)
[2019-03-07 07:01] LABS: BUN Creatinine Ratio 18.4 (10-20); Calcium 7.8 mg/dl (8.5-10.1); Creatinine Clr Calc Pharmacy 171.2 ml/min; Est GFR (African American) 114.3; Est GFR (Non-African American) 98.6; Potassium 3.5 mmol/L (3.5-5.1)
--- NOTE | 2019-03-07 07:34 | Urology Progress Note ---
Date of Service March 07, 2019 Assessment & Plan (1) Prostate cancer: POD #2 s/p RALP w/ LND - progressing appropriately - does not feel he is quite ready for d/c - we will continue to monitor him today and likely d/c tomorrow - HL IVF now - he is taking adequate PO liquids Subjective Doing very well - flatus overnight - only a bit of ambulation so far - pain well controlled - tolerating diet Review of Systems Review of Systems: All systems reviewed & are unremarkable except as noted in HPI & below Physical Exam Physical Exam: urine clear abd soft - incisions appropriate Results & Data Vital Signs (Past 12 Hours) Vital Signs Temp Pulse Pulse Resp BP Pulse Ox 03/06/19 22:52 37.2 C 63 16 131/67 91 03/06/19 19:40 60 159/72 H
[2019-03-07] MEDS: TORSEMIDE 20 MG TAB PO SCH ×2 (08:43→18:15)
[2019-03-07] MEDS: DOCUSATE SODIUM 100 MG CAP PO SCH ×2 (08:43→20:15)
[2019-03-07] MEDS: NIFEdipine EXTENDED REL 30 MG TABCR PO SCH (08:43)
[2019-03-07] MEDS: POTASSIUM CHLORIDE 20 MEQ TABCR PO SCH ×2 (08:43→20:16)
[2019-03-07] MEDS: CARVEDILOL 12.5 MG TAB PO SCH ×2 (08:43→20:15)
[2019-03-07] MEDS: MULTIVITAMIN TAB PO SCH (08:43)
[2019-03-07] MEDS: HEPARIN SOD 5,000 UNIT/0.5 ML VIAL SQ SCH ×2 (08:44→20:18)
[2019-03-07] MEDS: INSULIN ASPART 100 UNITS/ML 3 ML PEN SC SCH ×4 (08:47→22:13)
[2019-03-07] MEDS: METFORMIN HCL 500 MG TAB PO SCH ×2 (09:21→18:15)
[2019-03-07] MEDS: FAMOTIDINE 20 MG TAB PO SCH ×2 (09:21→20:15)
--- NOTE | 2019-03-07 09:21 | Pharmacy Report ---
Pharmacy Glycemic Short Note 2 - Date of Service March 07, 2019 - Glycemic Short BSG Results (Last 24 hours): 03/06/19 03/06/19 03/06/19 12:19 16:52 20:38 Glucose POC Glucose 85 85 126 H 03/07/19 03/07/19 06:04 08:10 Glucose 110 H POC Glucose 112 H Outpatient Anti-diabetic Regimen: * Metformin 500 mg po BID * A1c 6.3% on 03/06/19 Risk Factors for Insulin Resistance: * Steroids: dexamethasone 4 mg IV (overriden in OR on 03/05) * Recent Surgery: POD 2 s/p prostatectomy * Diet: T2DM ASSESSMENT: * 48 yo M with T2DM with good outpatient control on metformin monotherapy admitted on 03/05 for prostatectomy * BSG's have ranged 85-126 mg/dL over the past 24 hours. * Patient to likely go home tomorrow * Will resume home oral medications today and remove CR * Will add CR back if postprandial blood sugars rise PLAN FOR INPATIENT GLYCEMIC CONTROL: * Metformin 500mg BID with meals * Bolus insulin * NovoLog per scale ACHS or Q6hrs while NPO * Goal Range: Low 110 mg/dL - High 140 mg/dL * Correction Factor: 20 mg/dL/unit * DISCONTINUE: Nutritional / Prandial insulin per carb ratio PLAN FOR DISCHARGE: * Resume outpatient metformin 500 mg po BID
[2019-03-07] MEDS: OXYCODONE HCL IR 5 MG TAB (IMMEDIATE RELEASE) PO PRN (11:26)
[2019-03-07] MEDS: ACETAMINOPHEN 1,000 MG/100 ML VIAL IV PRN (15:45)
[2019-03-07] MEDS: ALLOPURINOL 300 MG TAB PO SCH (20:15)
[2019-03-08 06:31] LABS: Basophils # (auto) 0.01 K/uL (0-0.2); Basophils % (auto) 0.1 %; Eosinophils # (auto) 0.15 K/uL (0-0.5); Eosinophils % (auto) 1.9 %; Hematocrit (blood only) 36.6 % (42-52); Hemoglobin 11.9 g/dL (14.0-18.0); Immature Granulocytes # (auto) 0.02 K/uL (0.00-0.02); Immature Granulocytes % (auto) 0.2 %; Lymphocytes # (auto) 2.28 K/uL (1.2-3.4); Lymphocytes % (auto) 28.2 %; Mean Corpuscular Hgb Conc 32.5 g/dL (32-36); Mean Corpuscular Volume 92.7 fL (80-100); Monocytes # (auto) 0.79 K/uL (0.11-0.59); Monocytes % (auto) 9.8 %; Neutrophils # (auto) 4.84 K/uL (1.4-6.5); Neutrophils % (auto) 59.8 %; Platelet Count 175 K/uL (130-400); RDW Coefficient of Variation 13.8 % (11.5-14.5); RDW Standard Deviation 46.9 fL (36.4-46.3); Red Blood Count 3.95 M/uL (4.7-6.1); White Blood Count 8.09 K/uL (4.8-10.8)
[2019-03-08 07:01] LABS: BUN Creatinine Ratio 16.2 (10-20); Creatinine Clr Calc Pharmacy 169.3 ml/min; Est GFR (African American) 112.8; Est GFR (Non-African American) 97.3; Potassium 3.7 mmol/L (3.5-5.1)
--- NOTE | 2019-03-08 07:51 | Urology Progress Note ---
Date of Service March 08, 2019 Assessment & Plan (1) Prostate cancer: POD #3 s/p RALP w/ LND - path returned - Gl 3+4=7 - no SILVIA, margins neg, no SV invasion, nodes neg - shower this AM - ambulate - hopefully d/c home this afternoon Subjective Continues to do very well - ambulating - tolerating diet - passing flatus - labs stable, urine clear - some left upper leg cramping w/ activity (this occurs at home on occasion as well) Physical Exam Physical Exam: Incisions appropriate - some mild seeping around the incisions - no signs of infection,etc Results & Data Vital Signs (Past 12 Hours) Vital Signs Temp Pulse Pulse Resp BP BP Pulse Ox 03/08/19 07:38 36.5 C 64 16 145/77 H 93 03/07/19 23:05 36.4 C L 60 16 130/58 L 92 03/07/19 19:55 37 C 71 18 147/77 H 93
[2019-03-08] MEDS: INSULIN ASPART 100 UNITS/ML 3 ML PEN SC SCH ×4 (09:29→20:49)
[2019-03-08] MEDS: DOCUSATE SODIUM 100 MG CAP PO SCH ×2 (09:30→20:10)
[2019-03-08] MEDS: NIFEdipine EXTENDED REL 30 MG TABCR PO SCH (09:30)
[2019-03-08] MEDS: MULTIVITAMIN TAB PO SCH (09:30)
[2019-03-08] MEDS: FAMOTIDINE 20 MG TAB PO SCH ×2 (09:30→20:08)
[2019-03-08] MEDS: METFORMIN HCL 500 MG TAB PO SCH ×2 (09:31→17:56)
[2019-03-08] MEDS: TORSEMIDE 20 MG TAB PO SCH ×2 (09:31→17:55)
[2019-03-08] MEDS: POTASSIUM CHLORIDE 20 MEQ TABCR PO SCH ×2 (09:31→20:08)
[2019-03-08] MEDS: CARVEDILOL 12.5 MG TAB PO SCH ×2 (09:31→20:10)
[2019-03-08] MEDS: HEPARIN SOD 5,000 UNIT/0.5 ML VIAL SQ SCH ×2 (09:32→20:12)
[2019-03-08] MEDS: ALLOPURINOL 300 MG TAB PO SCH (20:08)
[2019-03-09] MEDS: OXYCODONE HCL IR 5 MG TAB (IMMEDIATE RELEASE) PO PRN (03:12)
[2019-03-09] MEDS: INSULIN ASPART 100 UNITS/ML 3 ML PEN SC SCH ×2 (09:45→12:26)
[2019-03-09] MEDS: HEPARIN SOD 5,000 UNIT/0.5 ML VIAL SQ SCH (09:46)
[2019-03-09] MEDS: POTASSIUM CHLORIDE 20 MEQ TABCR PO SCH (09:46)
[2019-03-09] MEDS: CARVEDILOL 12.5 MG TAB PO SCH (09:46)
[2019-03-09] MEDS: NIFEdipine EXTENDED REL 30 MG TABCR PO SCH (09:46)
[2019-03-09] MEDS: TORSEMIDE 20 MG TAB PO SCH (09:47)
[2019-03-09] MEDS: FAMOTIDINE 20 MG TAB PO SCH (09:47)
[2019-03-09] MEDS: METFORMIN HCL 500 MG TAB PO SCH (09:47)
[2019-03-09] MEDS: MULTIVITAMIN TAB PO SCH (09:47)
[2019-03-09] MEDS: DOCUSATE SODIUM 100 MG CAP PO SCH (09:47)
--- NOTE | 2019-03-09 10:21 | Urology Progress Note ---
Date of Service March 09, 2019 Assessment & Plan (1) Prostate cancer: POD #4 s/p RALP w/ LND Doing well. BM yesterday. Ambulating. Continue to advance activity. Slowly increase diet. Navarro until followup. Okay to shower. Call if issues. Home today. Subjective Doing well. No major problems. Tolerating diet. No N/v BM yesterday. Ambulating around and toelrating catheter better. Less leakage. No clots or hematuria. Pain controlled. Review of Systems Review of Systems: All systems reviewed & are unremarkable except as noted in HPI & below Physical Exam Constitutional: + morbidly obese ENMT: Mouth: no TMJ abnormality and no TMJ clicking Mallampati Class: II Neck: normal visual inspection; neck extension not limited Respiratory: Auscultation: lungs clear to auscultation bilaterally Cardiovascular: Rate/Rhythm: regular rate and regular rhythm Heart Sounds: no murmur Vessels: no carotid bruit Gastrointestinal (Abdomen): Soft. Mod distended. Psychiatric: Orientation: alert and oriented x 3 Genitourinary: Navarro in place draining clear yellow. Results & Data Vital Signs (Past 12 Hours) Vital Signs Temp Pulse Resp BP BP Pulse Ox 03/09/19 06:53 36.4 C L 60 16 120/64 96 03/08/19 23:10 36.9 C 59 L 18 118/60 94
--- NOTE | 2019-03-25 08:03 | Discharge Summary ---
Date of Service March 25, 2019 Admission HPI Per Admitting Provider admitted for prostatectomy Principal Diagnosis prostate ca Discharge Data Allergies Allergy/AdvReac Type Severity Reaction Status Date / Time pravastatin Allergy Severe Hives Verified 03/05/19 07:43 Procedures Performed Operation Date: 03/05/19 07:55 Actual Procedures p Robotic Assisted Laparoscopic Radical Retropubic Prostatectomy, Pelvic Lymph Node Dissection(Not Applicable) - Damon Donovan MD Hospital Course (1) Prostate cancer: Admitted for robotic prostatectomy, details of the procedure as dictated previously. In summary, he tolerated the procedure very well. He was in stable condition post operatively, but greatly preferred to stay in the hospital until his bowel function fully returned. He had an uneventful several days and was ultimately discharged in stable condition. Total Time Total Time Spent Total Time Spent (In Minutes): 15 Total Time Includes: Examination of the Patient, Discharge Planning and Medication Reconciliation Discharge Plan Discharge Items Patient Disposition: Home - Self-Care Reason For Visit: Prostate Cancer Discharge Diagnosis: Prostate cancer Discharge Goals: Improve disease control and Therapeutic intervention Activity: As commented below Lifting: No more than 10 pounds Bathing Comment: OK to shower. Do not scrub/pick surgical glue, no soaking in tub. Sexual Activity: Wait until after follow-up appointment Exercise Comment: Walking and stairs in your home are OK. Driving/Machine Use Comment: Please no driving while taking narcotic pain medication. Non-emergency contact: Urologist Call non-emergency contact if: you have any medication questions, your pain is concerning for you, your temperature is above 101, your wound has increased redness, your wound has increased drainage and your wound pain has increased Follow-up/Referrals: Laz Alvarez [Primary Care Provider] - Diet: Carb Consistent or DM2 Addtl Provider Instructions: Please keep all follow up appointments at the Urology office as scheduled. Call office at [phone] if you have any questions. Pain: take Tylenol for mild pain. Take pain medication (Oxycodone) every 6 hours as needed for moderate/severe pain. Bowels: take stool softener (Colace) twice daily for 2 weeks, then as needed for constipation. Antibiotic (Cipro): begin taking in the morning on 03/11/19. This is the day before your catheter removal. Then finish completely as prescribed. Navarro: clean twice daily with soap and water. Call office number above if not draining properly or displaced for any reason. Prescriptions: New oxycodone 5 mg tablet 5 mg PO Q6H PRN (Reason: pain) Qty: 14 RF: 0 ciprofloxacin HCl [Cipro] 500 mg tablet 500 mg PO BID Qty: 6 RF: 0 docusate sodium [Colace] 100 mg capsule 100 mg PO BID PRN (Reason: constipation) Qty: 60 RF: 0 Continued carvedilol [Coreg] 12.5 mg tablet 12.5 mg PO BID RF: 0 metformin 500 mg tablet 500 mg PO BID RF: 0 multivitamin [Multiple Vitamins] tablet 1 tab PO QAM RF: 0 armodafinil [Nuvigil] 200 mg tablet 200 mg PO QAM RF: 0 potassium chloride 10 mEq tablet extended release 40 meq PO BID RF: 0 ranitidine HCl [Zantac] 150 mg tablet 150 mg PO BID RF: 0 torsemide [Demadex] 20 mg tablet 20 mg PO BID RF: 0 nifedipine [Procardia XL] 60 mg tablet extended release 24hr 60 mg PO QAM RF: 0 allopurinol 300 mg tablet 150 mg PO QPM RF: 0 Discontinued aspirin 81 mg tablet,delayed release (DR/EC) 81 mg PO QPM RF: 0 Stand-Alone Forms: [facility] [employer], [facility] [employer]/Other Patient Handouts: TURP, TURP Home Recover, TURP Hospital Recover, Catheter Bag Urinary Empty Clean, Catheter Indwelling Urinary Dc, Leg Bag Care Dc Discharge Orders: Discharge Order (Routine); Ordered 03/09/19 Ordered By: Jose Albarran II Admission Data Admit Date/Time: 03/05/19 12:34 Attending Provider: Damon Donovan Admit Provider: Damon Donovan Primary Care Provider: aLz Alvarez Service: Surgical Services Other Interventions: Discharge Summary Assessment (RN) Last Done: 03/08/19 11:54 DC Date/Time DO NOT enter until pt leaves facility: 03/09/19 13:04
== END 2019-03-09 13:04 | disposition home or self-care (01) | DRG 707 ==
LOC: ASU 06:25 → 3N 12:34

== ENCOUNTER 2019-11-28 10:36 | Inpatient (IN) ==
--- NOTE | 2019-11-18 13:59 | PAT Medication Instructions ---
Medication Instructions Date of Service November 18, 2019 Home Medications allopurinol 300 mg tablet 150 mg PO QPM armodafinil 200 mg tablet 250 mg PO QAM carvedilol 12.5 mg tablet 12.5 mg PO BID metformin 500 mg tablet 500 mg PO BID multivitamin 1 tab PO QAM nifedipine 60 mg tablet,extended release 24 hr 60 mg PO QAM potassium chloride 10 mEq tablet,extended release 40 meq PO BID ranitidine HCl 150 mg tablet 150 mg PO BID aspirin [Aspir-81] 81 mg PO BID torsemide 20 mg PO BID ASK your prescriber and surgeon aspirin [Aspir-81] 81 mg PO BID DO NOT take the morning of surgery armodafinil 200 mg tablet 250 mg PO QAM metformin 500 mg tablet 500 mg PO BID multivitamin 1 tab PO QAM potassium chloride 10 mEq tablet,extended release 40 meq PO BID torsemide 20 mg PO BID Take morning of surgery With a small sip of water, OTHERWISE NOTHING TO EAT OR DRINK AFTER MIDNIGHT: carvedilol 12.5 mg tablet 12.5 mg PO BID nifedipine 60 mg tablet,extended release 24 hr 60 mg PO QAM Take evening before surgery allopurinol 300 mg tablet 150 mg PO QPM carvedilol 12.5 mg tablet 12.5 mg PO BID metformin 500 mg tablet 500 mg PO BID potassium chloride 10 mEq tablet,extended release 40 meq PO BID ranitidine HCl 150 mg tablet 150 mg PO BID torsemide 20 mg PO BID Other Notes If you have any questions please call us at [phone] or [phone] or [phone] or [phone]
--- NOTE | 2019-11-19 13:39 | Anesthesiology Consultation ---
Date of Service November 19, 2019 Assessment & Plan (1) Encounter for pre-operative examination: - Check BSG AM DOS - Cardiology: 06/06/19: Aware of plan for upcoming right nephrectomy. "Feeling well." Aggressive risk factor modification recommended. - Pacemaker: Case reviewed with Dr. Kim- he does not feel pacer rep needed perioperatively. - S/P Robotic prostatectomy: 03/05/19: Grade view 2, Glidescope# 4.0, ETT 8.0 at [facility] - ASA instructions: per surgeon/prescriber Chart Review Chart Review: Acceptable Risk for Surgery and Patient seen in Pre Admission Testing Teaching & Discussion Pre-Anesthesia Teaching/Discussion Notes: Instructed NPO after midnight before surgery,except medications with 15 cc of water. Medication instructions provi ded according to the PAT guidelines. History Surgery Operation Date: 11/28/19 13:35 Proposed Procedures p Right Laparoscopic Hand Assisted Nephrectomy, Cystoscopy, Uretheral Bulking Agent - Damon Donovan MD Height/Weight Height: 6 ft 4 in Weight: 175.4 kg Allergies Allergy/AdvReac Type Severity Reaction Status Date / Time pravastatin Allergy Unknown Hives Verified 11/18/19 13:26 Medications Home Medications Medication Instructions Recorded Confirmed Last Taken allopurinol 300 mg tablet 150 mg PO QPM tab 01/02/19 11/18/19 03/04/19 08:30 armodafinil 200 mg tablet 250 mg PO QAM 01/02/19 11/18/19 03/04/19 08:30 carvedilol 12.5 mg tablet 12.5 mg PO BID 01/02/19 11/18/19 03/04/19 08:30 metformin 500 mg tablet 500 mg PO BID 01/02/19 11/18/19 03/04/19 08:30 multivitamin 1 tab PO QAM 01/02/19 11/18/19 03/04/19 08:30 nifedipine 60 mg tablet,extended 60 mg PO QAM 01/02/19 11/18/19 03/04/19 08:30 release 24 hr potassium chloride 10 mEq 40 meq PO BID tab 01/02/19 11/18/19 03/04/19 08:30 tablet,extended release ranitidine HCl 150 mg tablet 150 mg PO BID tab 01/02/19 11/18/19 03/04/19 08:30 aspirin [Aspir-81] 81 mg PO BID 11/18/19 11/18/19 Unknown torsemide 20 mg PO BID 11/18/19 11/18/19 Unknown Past Medical History Medical History Diabetes NIDDM Drowsiness daytime drowsiness- on Nuvigil High cholesterol Hypertension Kidney tumor Morbid obesity Myocardial infarct [address] [employer]. Dual chamber. Implanted 2000, 2008 (revision), 2013 (replaced), last pacer check 05/2019 Prostate CA dx 11/2018 Sleep apnea CPAP Exercise / Class Metabolic Activity III < 4 Walking/Shop/Light housework Past Family History Family History Grandfather (Maternal) , Passed in 70's of suicide Colon cancer, Onset Age: 70 Mother No problems noted. Father Diabetes Brother No problems noted. Brother No problems noted. Sister No problems noted. Daughter No problems noted. Daughter No problems noted. Daughter No problems noted. Daughter No problems noted. Past Surgical History Surgical History History of cardiac cath X3; MOST RECENT 2013 History of prostate biopsy 11/2018 History of prostatectomy S/P Robotic prostatectomy: 03/05/19: Grade view 2, Glidescope# 4.0, ETT 8.0 at [facility] Status post biventricular cardiac pacemaker insertion 2000, 2013 Past Anesthesia History No Hx of Anesthesia Complications and No Family Hx of Anesthesia Complications History of PONV No Hx of PONV and Hx of Motion Sickness Social History Smoking Status: Former smoker tobacco type: cigarettes Do You Dip or Chew Tobacco: No Smoking End Date: QUIT 15 YEARS, HX < 3 PPD X 20+ YEARS Hx Alcohol Use: Yes Alcohol type: beer alcohol intake frequency: holidays/special occasions only Hx Substance Use: No substance use type: does not use Review of Systems Patient denies chest pain, shortness of breath, cough, wheezing, palpitations. Physical Exam Vital Signs VITALS BP 141/82 P 60 TEMP 98.4 SP02 95%RA RESP 16 PHYSICAL Full neck and c-spine range of motion. Full TMJ range of motion. TMD 4 finger breaths Mallampati Score 3 Dentition: missing molars Lungs: clear throughout to auscultation Cardiac: regular rate and rhythm, no murmurs noted Spine: normal Carotid arteries: negative bruit Extremities: no edema Short, thick neck Testing Laboratory Results 11/19/19 14:05 11/19/19 14:05 Urine Color Yellow 11/19/19 Unknown Urine Appearance Clear (Clear) 11/19/19 Unknown Urine pH 5.0 (4.5-7.5) 11/19/19 Unknown Ur Specific [place] 1.014 (1.000-1.030) 11/19/19 Unknown Urine Protein Negative (Negative) 11/19/19 Unknown Urine Glucose (UA) Negative (Negative) 11/19/19 Unknown Urine Ketones Negative (Negative) 11/19/19 Unknown Urine Nitrite Negative (Negative) 11/19/19 Unknown Ur Leukocyte Esterase Negative (Negative) 11/19/19 Unknown Blood Type O Positive 11/19/19 14:05 Antibody Screen NEGATIVE 11/19/19 14:05 Electrocardiogram Date: 12/20/18 Atrial paced rhythm at 60bpm. Chest X-Ray Date: 02/12/19 Findings: + NAD Mild cardiomegaly. No acute process. Echocardiogram Date: 12/20/18 EF 55%. No RWMA. Mild LVH. Minimal sclerotic changes to atrial/mitral valve. Stress Test Date: 06/29/17 Type: nuclear (LEXISCAN) Normal myocardial perfusion stress images with no evidence for pharmacologically induced ischemia. Post stress 52%. Other Testing Pacer check: 06/06/19: [employer]. Mode DDDR. AP 56%. AP <1%. "Normal check. No changes made." Battery life 3.25-5.5 years.
[2019-11-19 14:50] LABS: Basophils # (auto) 0.01 K/uL (0-0.2); Basophils % (auto) 0.1 %; Eosinophils # (auto) 0.14 K/uL (0-0.5); Hemoglobin 14.9 g/dL (14.0-18.0); Immature Granulocytes # (auto) 0.01 K/uL (0.00-0.02); Immature Granulocytes % (auto) 0.1 %; Lymphocytes # (auto) 1.96 K/uL (1.2-3.4); Lymphocytes % (auto) 27.5 %; Mean Corpuscular Hemoglobin 31.1 pg (25-34); Mean Corpuscular Hgb Conc 33.1 g/dL (32-36); Mean Corpuscular Volume 93.9 fL (80-100); Mean Platelet Volume 11.5 fL (7.4-10.4); Monocytes # (auto) 0.61 K/uL (0.11-0.59); Monocytes % (auto) 8.5 %; Neutrophils # (auto) 4.41 K/uL (1.4-6.5); Neutrophils % (auto) 61.8 %; Platelet Count 246 K/uL (130-400); RDW Coefficient of Variation 13.1 % (11.5-14.5); RDW Standard Deviation 45.1 fL (36.4-46.3); Red Blood Count 4.79 M/uL (4.7-6.1); White Blood Count 7.14 K/uL (4.8-10.8)
[2019-11-19 14:59] LABS: Appearance Urine Clear (Clear); Bilirubin Urine Negative (Negative); Blood Urine Negative (Negative); Color Urine Yellow; Glucose Urine UA Negative (Negative); Ketones Urine Negative (Negative); Leukocyte Esterase Urine Negative (Negative); Nitrite Urine Negative (Negative); Protein Urine Negative (Negative); Specific Gravity Urine 1.014 (1.000-1.030); Urobilinogen Urine Negative (Negative)
[2019-11-19 15:47] LABS: Blood Urea Nitrogen 17 mg/dl (7-18); Calcium 9.1 mg/dl (8.5-10.1); Carbon Dioxide 33 mmol/L (21-32); Chloride 104 mmol/L (98-107); Creatinine Clr Calc Pharmacy 171.7 ml/min; Est GFR (African American) 115.6; Est GFR (Non-African American) 99.7; Glucose 95 mg/dl (70-99); Potassium 3.7 mmol/L (3.5-5.1); Sodium 140 mmol/L (136-145)
[2019-11-19 15:50] LABS: Prostate Specific Antigen < 0.010 ng/ml (0-4)
[2019-11-20 05:52] LABS: Estimated Average Glucose 128 mg/dl; Hemoglobin A1C 6.1 % (4.5-5.6)
[~2019-11-28 10:36] MED LIST changes: -CEFAZOLIN 3000MG 65 ML IV SCH; +CEFAZOLIN 3000MG 72.5 ML IV SCH; +DEXAMETHASONE SOD INJ 4 MG/ML VIAL ONE; +GLYCOPYRROLATE 0.2 MG/ML VIAL ONE; -HEPARIN SOD 5,000 UNIT/0.5 ML VIAL SC SCH; +HEPARIN SOD 5,000 UNIT/0.5 ML VIAL SQ SCH; -HEPARIN SQ 5000 UNIT HEART ALERT CARP SQ SCH; +HYDROmorphone INJ 2 MG/ML SYR/VIAL ONE; +LIDOCAINE HCL 2% 2 ML VIAL/AMP(20MG/ML) INFIL ONE; +MIDAZOLAM HCL 1 MG/ML 2ML VIAL ONE; +NEOSTIGMINE METHYLSULFATE 5 MG/5 ML SYR ONE; +ONDANSETRON INJ 2 MG/ML 2 ML VIAL ONE; +PROPOFOL IV EMULSION 10 MG/ML 20 ML VIAL IV ONE; +ROCURONIUM BROMIDE 10 MG/ML 5 ML VIAL ONE; +fentaNYL citrate 100 MCG/2 ML VIAL ONE
--- NOTE | 2019-11-28 12:10 | History & Physical Bridge Note ---
Date of Service November 28, 2019 History & Physical Bridge Note I have examined the patient, reviewed the History & Physical and in the interval since the performance of the History & Physical I have noted the following changes of clinical significance: no changes noted
[2019-11-28] MEDS ORDERED: BUPIVACAINE 0.5 % 5 MG/1 ML MPF 30ML VIAL ONE (12:37)
[2019-11-28] MEDS ORDERED: METOCLOPRAMIDE HCL INJ 5 MG/ML 2 ML VIAL IV PRN (12:41)
[2019-11-28] MEDS ORDERED: ATROPINE SULFATE 0.1 MG/ML 10ML SYR IV PRN ×2 (12:41→17:42)
[2019-11-28] MEDS ORDERED: PROMETHAZINE HCL 12.5 MG in SODIUM CHLORIDE 0.9% 50 ML IV PRN (12:41)
[2019-11-28] MEDS ORDERED: ONDANSETRON INJ 2 MG/ML 2 ML VIAL IV PRN ×2 (12:41→18:52)
[2019-11-28] MEDS ORDERED: ePHEDrine sulfate 50 MG/ML AMP IV PRN ×2 (12:41→17:42)
[2019-11-28] MEDS ORDERED: ROCURONIUM BROMIDE 10 MG/ML 5 ML VIAL ONE (14:12)
[2019-11-28] MEDS ORDERED: PHENYLEPHRINE 100MCG/ML 5ML SYR ONE (14:30)
[2019-11-28] MEDS ORDERED: fentaNYL citrate 100 MCG/2 ML VIAL ONE (14:43)
[2019-11-28] MEDS ORDERED: ACETAMINOPHEN 1000 MG/100 ML IV IV ONE (15:05)
[2019-11-28] MEDS ORDERED: PROPOFOL IV EMULSION 10 MG/ML 20 ML VIAL IV ONE (15:23)
[2019-11-28] MEDS ORDERED: HydrALAZINE HCL 20 MG/ML VIAL ONE (15:23)
[2019-11-28] MEDS ORDERED: ONDANSETRON INJ 2 MG/ML 2 ML VIAL ONE (15:23)
--- NOTE | 2019-11-28 16:44 | Operative Report ---
PG Post Operative Report Pre & Post Diagnosis Operation Date: 11/28/19 12:35 Pre-Op Diagnosis: Renal Mass; stress incontinence Post-Op Diagnosis: Renal Mass; stress incontinence I identified the patient and participated in the time-out.: Yes Procedure Operation Date: 11/28/19 12:35 Actual Procedures p Right Laparoscopic Hand Assisted Nephrectomy,(Right) - Damon Donovan MD s Cystoscopy, Urethral bulking agent - Damon Donovan MD Surgeon Derick Donovan MD Cashier Maggie Clements Estimated Blood Loss 50 Findings Consistent with Post-Op Diagnosis Specimens Right kidney for routine pathology Description of Procedure The patient was identified in the preopertive holding area, appropriate informed consents were reviewed and completed and the patient was transferred to the operative suite. Upon arrival, appropriate antibiotics and anesthesia were administered and the patient was placed left side down right side up lateral decubitus position with the bed flexed. He was padded and placed appropriately prior to sterile prep and drape. To begin the case I made a Cullen style incision in the right lower quadrant, incorporating 1 of our prior prostatectomy ports. This incision was carried through the superficial tissues including Syed's fascia until the external oblique fascia was identified. I sharply incised external oblique fascia and then extended that incision laterally and medially to accommodate the full length of a hand port. After good the external oblique was opened I did the same to the internal oblique followed by the transversalis. I then pierced the peritoneum sharply with Metzenbaum scissors and performed a finger sweep revealing no adhesions in the area of entry. I then expanded this incision to accommodate the hand port. HandPort was subsequently placed with the gel portion attached and a 12 mm port placed through the central perforation in the GelPort. I insufflated the abdomen and performed a laparoscopic evaluation utilizing a 30 degree lens. There were no significant adhesions. The colon was largely medialized already and the cecum and appendix were visualized directly beneath our hand port. I subsequently placed to 12 mm staff assistant ports, the first just below the costal margin and lateral to the rectus muscle. The second approximately 10 cm inferior to the first. Both of these were placed directly onto my hand after confirming that the anterior abdominal wall was clear in passing my hand through the GelPort. To begin the laparoscopic portion of the case, I mobilized the colon further medially. I incised lateral to the colon overlying the kidney and flipped the colon over. I then encountered the duodenum immediately posterior to the colon and I kocherized this off of the presumed area of the renal hilum. I incised the peritoneum lateral to the kidney as well as between the upper pole of the kidney and the liver. Of note, he is a very large man and his kidney and overlying fat also were quite large. I turned to the inferior pole of the kidney and I began to skeletonize further until I encountered the gonadal vein. I follow the anterior surface of the gonadal vein until it pierced into the inferior vena cava. I created a window lateral to the IVC and gonadal vein but medial to the kidney and passed my hand through this window elevating the kidney. I traced the lateral aspect of the inferior vena cava until I encountered the inferior margin of the renal vein. I skeletonized the renal vein circumferentially. With my hand behind the renal hilum I was able to easily palpate the artery immediately posterior to the vein. I hooked a finger around the superior margin of the vessels and created a window superiorly to the hilar structures. I then passed a solitary staple load to control the hilar structures en bloc. There was excellent hemostasis after firing the staple load. I was able to then pull the kidney inferiorly exposing the medial superior attachments and was able to fire a second staple load between the adrenal gland and the kidney itself. A third staple load was utilized to contin ue this dissection superiorly followed by use of the harmonic scalpel to complete my lateral and superior dissection. The posterior area had already been swept clean on the psoas muscle, and the inferior aspect of the kidney and Gerota's fascia was skeletonized and controlled with a final staple load which incorporated the ureter. The kidney was then entirely freed. Unfortunately, the specimen was significantly larger than the GelPort and I was unable to extract it through this port. We therefore confirmed excellent hemostasis and concluded our laparoscopic portion of the case and withdrew the ports and I expanded my hand port to accommodate extraction of the specimen. I then closed in multiple layers, first reapproximating the peritoneum with 0 Vicryl followed by closure of the transversalis, external oblique and internal oblique each individually utilizing a running 0 Vicryl. Syed's fascia was reapproximated with a 2-0 Vicryl prior to closure of the skin with a 4-0 Monocryl subcuticular stitch. The laparoscopic ports were closed with a 0 Vicryl followed by 4-0 Monocryl. All incisions were closed with Dermabond superficially. We then repositioned the patient into a dorsal lithotomy position prepped for the cystoscopy part of the case. His Navarro catheter was removed and a visual urethrotome was passed per urethra with 12 degree lens. Inspection revealed a very healthy and intact appearing sphincter, well-healed bladder neck healthy- appearing bladder. After inspection I withdrew the scope to an area just distal to the sphincter and I placed 3 syringes of bulking agent, one on the left, one on the right the final syringe was split between the 2. This further closed the urethra appropriately allowing complete coaptation of the sphincter. I emptied his bladder and concluded the case. He was extubated and taken to the PACU in stable condition. There were no complications. Maggie Clements assisted from incision to closure, Dolores Ureña served as a second assist. I attest to the content of the Intraoperative Record and any orders documented therein. Any exceptions are noted below.
[2019-11-28] MEDS: fentaNYL citrate 100 MCG/2 ML VIAL IV PRN ×2 (17:00→17:05)
[2019-11-28 17:03] LABS: Basophils # (auto) 0.01 K/uL (0-0.2); Basophils % (auto) 0.1 %; Eosinophils # (auto) 0.02 K/uL (0-0.5); Eosinophils % (auto) 0.2 %; Hematocrit (blood only) 41.2 % (42-52); Immature Granulocytes # (auto) 0.02 K/uL (0.00-0.02); Immature Granulocytes % (auto) 0.2 %; Lymphocytes # (auto) 1.79 K/uL (1.2-3.4); Lymphocytes % (auto) 15.8 %; Mean Corpuscular Hemoglobin 30.8 pg (25-34); Mean Corpuscular Volume 90.7 fL (80-100); Mean Platelet Volume 10.5 fL (7.4-10.4); Monocytes # (auto) 0.23 K/uL (0.11-0.59); Neutrophils # (auto) 9.26 K/uL (1.4-6.5); Neutrophils % (auto) 81.7 %; Platelet Count 201 K/uL (130-400); RDW Standard Deviation 43.3 fL (36.4-46.3); Red Blood Count 4.54 M/uL (4.7-6.1); White Blood Count 11.33 K/uL (4.8-10.8)
[2019-11-28 17:05] LABS: iSTAT Arterial Blood Gas HCO3 29 meg/L (19-24); iSTAT Arterial Blood Gas pCO2 43 mmHg (35-46); iSTAT Arterial Blood Gas pH 7.44 (7.35-7.45); iSTAT Arterial Blood Gas pO2 148 mmHg (80-95); iSTAT Carbon Dioxide 30 mmol/L (24-31); iSTAT Hematocrit 39 % (42-52); iSTAT Hemoglobin 13.3 g/dl (14.0-18.0); iSTAT Potassium 3.4 mmol/L (3.3-5.0); iSTAT Sodium 138 mmol/L (135-144)
[2019-11-28] MEDS ORDERED: HYDROmorphone INJ 1 MG/ML SYRINGE ONE ×2 (17:15→17:54)
[2019-11-28] MEDS: HYDROmorphone INJ 2 MG/ML SYR/VIAL IV PRN ×2 (17:15→17:20)
[2019-11-28 17:21] LABS: BUN Creatinine Ratio 12.1 (10-20); Calcium 8.6 mg/dl (8.5-10.1); Creatinine Clr Calc Pharmacy 142.4 ml/min; Est GFR (African American) 93.3; Est GFR (Non-African American) 80.5; Potassium 3.6 mmol/L (3.5-5.1)
--- NOTE | 2019-11-28 17:42 | Anesthesiology Progress Note ---
Date of Service November 28, 2019 Anesthesia Post Procedure Vital Signs Vital Signs: Temp Pulse Pulse Resp BP Pulse Ox 11/28/19 17:35 60 16 139/78 95 11/28/19 17:25 37.1 C 60 16 140/79 95 11/28/19 17:15 60 16 139/78 100 11/28/19 17:05 60 16 132/74 100 11/28/19 16:55 60 16 131/73 100 11/28/19 16:45 60 16 132/73 99 11/28/19 16:39 36.9 C 60 16 139/69 99 11/28/19 11:09 36.7 C 60 175/91 H 94 Pain Intensity Abdomen: Pain Intensity: 4 Transfer of Care Handoff Completed per policy Notes Mental Status: alert / awake / arousable and participated in evaluation Patient Amnestic to Procedure: Yes Nausea / Vomiting: adequately controlled Pain: adequately controlled Airway Patency, RR, SpO2: stable & adequate BP & HR: stable & adequate Hydration State: stable & adequate Anesthetic Complications: no major complications apparent and Pt Satisfied with anesthetic care
[2019-11-28] MEDS ORDERED: OXYCODONE HCL IR 5 MG TAB (IMMEDIATE RELEASE) PO PRN (18:52)
[2019-11-28] MEDS ORDERED: MoRPHine SULFATE 4 MG/ML 1 ML CARP\\VIAL IV PRN (18:52)
[2019-11-28] MEDS ORDERED: MoRPHine SULFATE 2 MG/ML CARP IV PRN (18:52)
[2019-11-28] MEDS: LACTATED RINGER'S 1,000 ML IV SCH (19:05)
[2019-11-28] MEDS ORDERED: PHARMACY GLYCEMIC MGMT CONSULT PRN (19:23)
[2019-11-28] MEDS ORDERED: GLUCOSE 40% GEL 15 GM TUBE PO PRN (19:30)
[2019-11-28] MEDS ORDERED: LANTUS PER UNIT CHARGE SQ ONE (19:30)
[2019-11-28] MEDS ORDERED: CARBOHYDRATES FOR HYPOGLYCEMIA PO PRN (19:30)
[2019-11-28] MEDS ORDERED: GLUCOSE 10 TABS/TUBE PO PRN (19:30)
[2019-11-28] MEDS ORDERED: DEXTROSE 50% 50 ML SYRINGE IV PRN (19:30)
[2019-11-28] MEDS ORDERED: GLUCAGON FOR INJ 1 MG VIAL IM PRN (19:30)
[2019-11-28] MEDS: INSULIN ASPART 100 UNITS/ML 3 ML PEN SC SCH ×2 (21:02→21:32)
[2019-11-28] MEDS: ACETAMINOPHEN 1,000 MG/100 ML VIAL IV SCH (21:05)
[2019-11-28] MEDS: CEFAZOLIN 2000MG 2,000 MG/15 ML SYR IV SCH (21:05)
[2019-11-28] MEDS: carvediloL 12.5 MG TAB PO SCH (21:06)
[2019-11-28] MEDS: DOCUSATE SODIUM 100 MG CAP PO SCH (21:06)
[2019-11-28] MEDS: FAMOTIDINE 10 MG TABLET PO SCH (21:06)
[2019-11-28] MEDS: allopurinoL 300 MG TAB PO SCH (21:07)
[2019-11-28] MEDS: HEPARIN SOD 5,000 UNIT/0.5 ML VIAL SQ SCH (21:08)
[2019-11-28] MEDS: OXYCODONE HCL IR 5 MG TAB (IMMEDIATE RELEASE) PO PRN (21:39)
[2019-11-29] MEDS: INSULIN ASPART 100 UNITS/ML 3 ML PEN SC SCH ×6 (00:23→21:08)
[2019-11-29] MEDS: OXYCODONE HCL IR 5 MG TAB (IMMEDIATE RELEASE) PO PRN ×3 (04:56→20:26)
[2019-11-29] MEDS: LACTATED RINGER'S 1,000 ML IV SCH ×2 (04:57→14:20)
[2019-11-29] MEDS: ACETAMINOPHEN 1,000 MG/100 ML VIAL IV SCH ×3 (06:06→21:43)
[2019-11-29] MEDS: CEFAZOLIN 2000MG 2,000 MG/15 ML SYR IV SCH (06:27)
[2019-11-29 07:00] LABS: Eosinophils # (auto) 0.03 K/uL (0-0.5); Eosinophils % (auto) 0.4 %; Hematocrit (blood only) 41.4 % (42-52); Hemoglobin 13.7 g/dL (14.0-18.0); Immature Granulocytes # (auto) 0.02 K/uL (0.00-0.02); Immature Granulocytes % (auto) 0.2 %; Lymphocytes # (auto) 1.74 K/uL (1.2-3.4); Lymphocytes % (auto) 21.1 %; Mean Corpuscular Hemoglobin 30.6 pg (25-34); Mean Corpuscular Hgb Conc 33.1 g/dL (32-36); Mean Corpuscular Volume 92.6 fL (80-100); Mean Platelet Volume 11.2 fL (7.4-10.4); Monocytes # (auto) 0.67 K/uL (0.11-0.59); Monocytes % (auto) 8.1 %; Neutrophils # (auto) 5.78 K/uL (1.4-6.5); Neutrophils % (auto) 70.2 %; Platelet Count 203 K/uL (130-400); RDW Coefficient of Variation 13.4 % (11.5-14.5); RDW Standard Deviation 45.6 fL (36.4-46.3); Red Blood Count 4.47 M/uL (4.7-6.1); White Blood Count 8.24 K/uL (4.8-10.8)
[2019-11-29 07:40] LABS: BUN Creatinine Ratio 10.6 (10-20); Calcium 8.5 mg/dl (8.5-10.1); Creatinine Clr Calc Pharmacy 103.3 ml/min; Est GFR (African American) 63.6; Est GFR (Non-African American) 54.8; Potassium 3.4 mmol/L (3.5-5.1)
[2019-11-29] MEDS: carvediloL 12.5 MG TAB PO SCH ×2 (08:02→20:26)
[2019-11-29] MEDS: DOCUSATE SODIUM 100 MG CAP PO SCH ×2 (08:02→20:27)
[2019-11-29] MEDS: FAMOTIDINE 10 MG TABLET PO SCH ×2 (08:02→20:27)
[2019-11-29] MEDS: MULTIVITAMIN TAB PO SCH (08:02)
[2019-11-29] MEDS: HEPARIN SOD 5,000 UNIT/0.5 ML VIAL SQ SCH ×2 (08:03→21:09)
[2019-11-29] MEDS: NIFEdipine EXTENDED REL 30 MG TABCR PO SCH (08:03)
--- NOTE | 2019-11-29 08:43 | Anesthesiology Progress Note ---
Date of Service November 29, 2019 Anesthesia Post Procedure Vital Signs Vital Signs: Temp Pulse Pulse Pulse Resp BP Pulse Ox 11/29/19 07:00 37.0 C 58 L 22 181/71 H 91 11/29/19 04:00 36.7 C 59 L 18 167/80 H 95 11/29/19 01:10 87 11/29/19 00:12 36.8 C 78 20 135/76 94 11/28/19 21:25 37.2 C 88 16 138/78 94 11/28/19 20:00 36.8 C 78 16 146/80 H 95 11/28/19 19:11 36.6 C 60 16 150/78 H 93 11/28/19 18:30 36.6 C 60 16 144/79 H 94 11/28/19 18:20 60 16 148/75 H 94 11/28/19 18:10 60 16 138/73 94 11/28/19 18:00 62 16 146/72 H 93 11/28/19 17:50 60 16 142/73 H 95 11/28/19 17:45 60 16 144/79 H 94 11/28/19 17:35 60 16 139/78 95 11/28/19 17:25 37.1 C 60 16 140/79 95 11/28/19 17:15 60 16 139/78 100 11/28/19 17:05 60 16 132/74 100 11/28/19 16:55 60 16 131/73 100 11/28/19 16:45 60 16 132/73 99 11/28/19 16:39 36.9 C 60 16 139/69 99 11/28/19 11:09 36.7 C 60 175/91 H 94 Pain Intensity Abdomen: Pain Intensity: 4 Notes Mental Status: alert / awake / arousable and participated in evaluation Patient Amnestic to Procedure: Yes Nausea / Vomiting: adequately controlled Pain: adequately controlled Airway Patency, RR, SpO2: stable & adequate BP & HR: stable & adequate Hydration State: stable & adequate Anesthetic Complications: no major complications apparent and Pt Satisfied with anesthetic care
--- NOTE | 2019-11-29 09:14 | Urology Progress Note ---
Date of Service November 29, 2019 Assessment & Plan (1) Renal mass: 49 yo M POD #1 s/p right laparoscopic hand assisted nephrectomy and cystoscopy with bulking agent with Dr. Donovan. - Doing well this morning - Advance diet for lunch - Continue ambulation - Encourage IS - Discussed discharge plans, will plan on discharge tomorrow if progressing as expected - Expected clinical course reviewed. Post op appointment in place. All questions answered Subjective 49 yo M POD #1 s/p right laparoscopic hand assisted nephrectomy and cystoscopy with bulking agent with Dr. Donovan. Sitting up in bed this morning having breakfast. Reports intermittent pain, increased with movement. Pain is controlled with PO oxycodone. Tolerating full liquids. Voiding spontaneously. Has been out of bed to the bathroom. He would like to stay in hospital one more night. H/H stable. Cr - 1.47. BPs intermittently elevated overnight. Review of Systems Constitutional: as per Subjective / HPI Gastrointestinal: as per Subjective / HPI Genitourinary: + as per Subjective / HPI Physical Exam Constitutional: well nourished and + obese; no acute distress and not ill appearing Respiratory: normal respiratory effort and able to speak in complete sentences; no respiratory distress and no labored breathing Cardiovascular: Extremities: no pedal edema Gastrointestinal (Abdomen): Inspection/Auscultation: abdomen normal to inspection Percussion/Palpation: abdomen soft; abdomen nontender and no guarding Skin: Incision c/d/i Neurologic: moves all extremities and awake Psychiatric: A+Ox3, euthymic affect Genitourinary: voiding spontaneously, urine not visualized during exam Results & Data Vital Signs (Past 12 Hours) Vital Signs Temp Pulse Pulse Resp BP Pulse Ox 11/29/19 07:00 37.0 C 58 L 22 181/71 H 91 11/29/19 04:00 36.7 C 59 L 18 167/80 H 95 11/29/19 01:10 87 11/29/19 00:12 36.8 C 78 20 135/76 94 11/28/19 21:25 37.2 C 88 16 138/78 94 PG Care Time/CCT Total # of Minutes Spent Total Time Spent with Patient: Total time spent is greater than 50% in coordination of care (as documented) at patient's floor/unit and/or counseling patient: Coding Level of Care Code 27351 Subseq Hosp Care Lvl 2 Diagnoses Renal mass N28.89
--- NOTE | 2019-11-29 14:11 | Pharmacy Report ---
Pharmacy Glycemic Short Note 2 - Date of Service November 29, 2019 - Glycemic Short BSG Results (Last 24 hours): 11/28/19 11/28/19 11/28/19 16:41 16:52 21:00 Glucose 140 H POC Glucose 140 H 113 H 11/29/19 11/29/19 11/29/19 00:20 03:46 06:25 Glucose 106 H POC Glucose 113 H 105 H 11/29/19 11/29/19 08:06 11:51 Glucose POC Glucose 79 88 OUTPATIENT ANTIDIABETIC REGIMEN: * Metformin 500mg BIDM ASSESSMENT: * Pt's BSGs have been reasonable. Diet is being advanced as tolerated. He is currently on a full liquid diet. PLAN FOR INPATIENT GLYCEMIC CONTROL: * Hold outpatient oral diabetes medications * Basal insulin * None indicated at this juncture * Bolus insulin * NovoLog per scale ACHS or Q6hrs while NPO * Goal Range: Low 110 mg/dL - High 140 mg/dL * Correction Factor: 20 mg/dL/unit * Nutritional / Prandial insulin per carb ratio of 1 unit per 10 grams CHO consumed
[2019-11-29] MEDS: allopurinoL 300 MG TAB PO SCH (20:28)
[2019-11-30] MEDS: LACTATED RINGER'S 1,000 ML IV SCH (00:29)
[2019-11-30] MEDS: ACETAMINOPHEN 1,000 MG/100 ML VIAL IV SCH ×2 (05:47→12:29)
[2019-11-30 07:31] LABS: Basophils # (auto) 0.01 K/uL (0-0.2); Basophils % (auto) 0.1 %; Eosinophils # (auto) 0.12 K/uL (0-0.5); Eosinophils % (auto) 1.7 %; Hematocrit (blood only) 39.7 % (42-52); Hemoglobin 12.9 g/dL (14.0-18.0); Immature Granulocytes # (auto) 0.01 K/uL (0.00-0.02); Immature Granulocytes % (auto) 0.1 %; Lymphocytes # (auto) 1.39 K/uL (1.2-3.4); Lymphocytes % (auto) 19.8 %; Mean Corpuscular Hemoglobin 30.2 pg (25-34); Mean Corpuscular Hgb Conc 32.5 g/dL (32-36); Mean Platelet Volume 11.3 fL (7.4-10.4); Monocytes # (auto) 0.58 K/uL (0.11-0.59); Monocytes % (auto) 8.3 %; Platelet Count 177 K/uL (130-400); RDW Coefficient of Variation 13.3 % (11.5-14.5); RDW Standard Deviation 45.1 fL (36.4-46.3); Red Blood Count 4.27 M/uL (4.7-6.1); White Blood Count 7.01 K/uL (4.8-10.8)
[2019-11-30] MEDS: DOCUSATE SODIUM 100 MG CAP PO SCH (07:51)
[2019-11-30] MEDS: carvediloL 12.5 MG TAB PO SCH (07:51)
[2019-11-30] MEDS: MULTIVITAMIN TAB PO SCH (07:52)
[2019-11-30] MEDS: NIFEdipine EXTENDED REL 30 MG TABCR PO SCH (07:52)
[2019-11-30] MEDS: FAMOTIDINE 10 MG TABLET PO SCH (07:52)
[2019-11-30 07:59] LABS: BUN Creatinine Ratio 9.8 (10-20); Calcium 8.6 mg/dl (8.5-10.1); Creatinine Clr Calc Pharmacy 120.5 ml/min; Est GFR (African American) 75.8; Est GFR (Non-African American) 65.4; Potassium 3.3 mmol/L (3.5-5.1)
[2019-11-30] MEDS: INSULIN ASPART 100 UNITS/ML 3 ML PEN SC SCH ×2 (08:39→12:28)
[2019-11-30] MEDS: HEPARIN SOD 5,000 UNIT/0.5 ML VIAL SQ SCH (08:40)
--- NOTE | 2019-11-30 12:42 | Urology Progress Note ---
Date of Service November 30, 2019 Assessment & Plan (1) Renal mass: 49 yo M POD #2 s/p right laparoscopic hand assisted nephrectomy and cystoscopy with bulking agent with Dr. Donovan. Patient is doing overall very well. Is improving in activity. Has been tolerating diet. Pain has been controlled with minimal medication. Overall patient is interested in going home today. Patient understands he will need to continue with his home medications. We will recommend to intermittently check blood pressures at home. And to continue with his normal blood pressure regimen. Otherwise we will plan to follow-up. Call if any issues or concerns. Subjective 49 yo M POD #2 s/p right laparoscopic hand assisted nephrectomy and cystoscopy with bulking agent with Dr. Donovan. Patient has been doing well. Is ambulating. Has been tolerating diet. Has not had considerable nausea or vomiting or other major complaints. Pain is controlled. Has not had return of bowel function. No significant issues from urinary. Patient has been having episodes of high blood pressure. Patient had significant episode this morning however did respond to medication. Currently blood pressure 160s systolic. No other major changes. He has been somewhat off on his medications. And feels that once he is back on his regular routine the blood pressure will likely normalize. Review of Systems Constitutional: as per Subjective / HPI Gastrointestinal: as per Subjective / HPI Genitourinary: + as per Subjective / HPI Physical Exam Constitutional: well nourished and + obese; no acute distress and not ill appearing Respiratory: normal respiratory effort and able to speak in complete sentences; no respiratory distress and no labored breathing Cardiovascular: Extremities: no pedal edema Gastrointestinal (Abdomen): Inspection/Auscultation: abdomen normal to inspection Percussion/Palpation: abdomen soft; abdomen nontender and no guarding Neurologic: moves all extremities and awake Psychiatric: A+Ox3, euthymic affect Results & Data Vital Signs (Past 12 Hours) Vital Signs Temp Pulse Pulse Pulse Resp BP BP 11/30/19 11:02 60 11/30/19 11:00 36.8 C 59 L 18 166/75 H 11/30/19 10:21 160/79 H 11/30/19 09:24 194/95 H 11/30/19 07:52 36.5 C 62 19 209/107 H 11/30/19 03:39 36.7 C 60 18 166/91 H Pulse Ox 11/30/19 11:02 11/30/19 11:00 94 11/30/19 10:21 11/30/19 09:24 11/30/19 07:52 95 11/30/19 03:39 95 PG Care Time/CCT Total # of Minutes Spent Total Time Spent with Patient: Total time spent is greater than 50% in coordination of care (as documented) at patient's floor/unit and/or counseling patient: Coding Level of Care Code 91861 Subseq Hosp Care Lvl 3 Diagnoses Renal mass N28.89
--- NOTE | 2019-12-03 07:42 | Discharge Summary ---
Date of Service December 03, 2019 Admission HPI Per Admitting Provider 49-year-old gentleman with a history of prostate cancer and a known right renal mass highly concerning for renal cell carcinoma He now presents for right radical nephrectomy for definitive treatment of the right renal mass Principal Diagnosis Right renal mass highly concerning for renal cell carcinoma Discharge Data Allergies Allergy/AdvReac Type Severity Reaction Status Date / Time pravastatin Allergy Unknown Hives Verified 11/28/19 11:00 Procedures Performed Operation Date: 11/28/19 12:35 Actual Procedures p Right Laparoscopic Hand Assisted Nephrectomy,(Right) - Damon Donovan MD s Cystoscopy, Urethral Debulking agent(Left) - Damon Donovan MD Hospital Course (1) Renal mass: Patient underwent an uneventful right radical nephrectomylaparoscopic hand-assisted, a simultaneous cystoscopy and periurethral bulking agent for post prostatectomy stress incontinence. Details of the procedure are as dictated previously in the operative report, however, in summary he tolerated the procedure extremely well. Recovery was appropriatehe had mild hypertension but otherwise felt well. He was ambulatory and tolerating a diet shortly after surgery. He was subsequently discharged home in stable condition on the morning of postoperative day #2. . Total Time Total Time Spent Total Time Spent (In Minutes): 20 Total Time Includes: Examination of the Patient and Discharge Planning Discharge Plan Discharge Items Patient Disposition: Home - Self-Care Reason For Visit: Renal Mass Discharge Diagnosis: Renal Mass Condition on Discharge: Good Activity: Per Instructions section Bathing: Keep incision dry Bathing Comment: Okay to shower in 1 day, no soaking or tub bath until incisions heal. Sexual Activity: Wait until after follow-up appointment Exercise/Sports: Wait until after follow-up appointment Driving/Machine Use: No driving while taking prescription pain medication Non-emergency contact: Urologist Call non-emergency contact if: your pain is not controlled, your pain is worsening, your pain is concerning for you, you have a fever, your temperature is above 101, your wound has increased redness, your wound has increased drainage and your wound pain has increased Follow-up/Referrals: Damon Donovan MD [Physician] - 12/19/19 2:30 pm Laz Alvarez [Primary Care Provider] - 12/04/19 10:45 am (PATIENT AWARE) Diet: Carb Consistent or DM2 Addtl Attending Provider Instructions: Please take all medications as prescribed and keep all follow-ups as scheduled. Please call our office at [phone] with any questions, concerns or need to reschedule appointments for any reason. We are happy to assist you. Recovering at home: We recommend having someone with you for the first few days after surgery to help care for you. It is okay to shower tomorrow. Please avoid swimming, bathing or using hot tub until incisions are well healed. Avoid driving until you are not requiring pain medication any further. Walk at least a few times a day. Increase your distance, as you feel able. Stairs in your home are okay. Please avoid strenuous or sexual activity until your follow-up. We recommend using stool softener (i.e. Colace) to prevent constipation and straining, especially the first two weeks post operatively. Call [facility] [place] [facility] at [phone] if you experience: Chest pain or trouble breathing (call 911 or go to the hospital). Fever of 101F or higher Symptoms of infection at incision site, including redness or swelling, warmth, or bad-smelling drainage If you have catheter, and you notice: o Bloody urine or drainage that is dark red or has large clots (Please remember a small amount of blood is normal) o No drainage from the catheter for more than 6 hours o The catheter comes out of your bladder Pain that is not controlled with medicines Pending Studies at Discharge: Yes (pathology) Stand-Alone Forms: My [facility] OB10, Smoking Cessation Medications and DC Order Prescriptions: New docusate sodium [Colace] 100 mg capsule 100 mg PO BID Qty: 60 RF: 0 Continued carvedilol [Coreg] 12.5 mg tablet 12.5 mg PO BID RF: 0 metformin 500 mg tablet 500 mg PO BID RF: 0 multivitamin [Multiple Vitamins] tablet 1 tab PO QAM RF: 0 armodafinil [Nuvigil] 200 mg tablet 250 mg PO QAM RF: 0 potassium chloride 10 mEq tablet extended release 40 meq PO BID RF: 0 ranitidine HCl [Zantac] 150 mg tablet 150 mg PO BID RF: 0 nifedipine [Procardia XL] 60 mg tablet extended release 24hr 60 mg PO QAM RF: 0 allopurinol 300 mg tablet 150 mg PO QPM RF: 0 aspirin [Aspir-81] 81 mg Tablet,Delayed Release (Dr/Ec) 81 mg PO BID RF: 0 torsemide 20 mg Tablet 20 mg PO BID RF: 0 Discharge Orders: Discharge Order (Routine); Ordered 11/30/19 Ordered By: Jose Albarran Admission Data Admit Date/Time: 11/28/19 16:28 Attending Provider: Damon Donovan Admit Provider: Damon Donovan Primary Care Provider: Laz Alvarez Other Interventions: Discharge Summary Assessment (RN) Last Done: 11/30/19 12:48 DC Date/Time DO NOT enter until pt leaves facility: 11/30/19 14:32 Coding Level of Care Code D/C Day Management <30 mins Diagnoses Renal mass N28.89
== END 2019-11-30 14:32 | disposition home or self-care (01) | DRG 657 ==
LOC: ASU 10:36 → 2N 16:28